=== PATIENT | female | born 1945 | race Caucasian/White ===

== ENCOUNTER 2016-05-23 17:39 | Emergency (ER) | payer MEDICARE, BC ==
[~2016-05-23] VITALS: Ht 152.4 cm; Wt 90.7 kg
[~2016-05-23 17:39] MED LIST: ACTOS30 M1 PO; AMARYL4 MG PO; ASPIRIN81 M1 PO; ATIVAN PO; ATIVAN2 MG PO; AUGMENTIN 875 M1 TAB PO; CALCIUM 600/VIT1 CAP PO; CEFUROXIME AXE250 MG PO; CIPROFLOXACIN500 MG PO; CLARITIN10 MG PO; COMPAZINE10 MG PO; DARVOCET N 1001 TAB PO; DIFLUCAN150 MG PO; DIFLUCAN200 MG PO; FLAGYL500 MG PO; GEODON20 MG PO; GLUCOPHAGE1000 MG PO; GLUCOPHAGE500 MG PO; KEFLEX500 MG PO; LEVAQUIN750 MG PO; LEVOFLOXACIN500 MG PO; LISINOPRIL HCTZ1 TA1 PO; LISINOPRIL5 MG PO; Lopressor25 MG PO; MOTRIN800 MG PO; MULTIPLE VITAMI1 TAB PO; NEURONTIN100 MG PO; NYSTATIN100000 U/G TP; OMEGA-3 FISH1200 M1 PO; PRESERVISION A1 EAC1 PO; PRESERVISION1 SGL PO; PRINIVIL10 MG PO; PYRIDIUM200 M1 PO; SIMVASTATIN40 MG PO; VICODIN 500 MG-1 TAB PO; WELLBUTRIN SR150 MG PO; WELLBUTRIN XL150 MG PO
[2016-05-23] MEDS ORDERED: LISINOPRIL-HYDR1 TA1 PO (17:58)
[2016-05-23] MEDS ORDERED: ATIVAN1 MG PO (17:59)
[2016-05-23 18:27] LABS: BASO # 0.1 10*3/uL (0.0-0.1); BASO % 0.5 % (0.0-1.0); EOS # 0.2 10*3/uL (0.0-0.4); EOS % 1.9 % (1.0-4.0); HEMATOCRIT 40.4 % (37.0-47.0); HEMOGLOBIN 12.8 g/dl (12.0-16.0); IG # 0.1 10*3/uL (0.0-0.1); LYMPH # 1.8 10*3/uL (1.3-4.4); LYMPH % 19.2 % (27.0-41.0); MEAN CORPUSCULAR HGB 29.8 pg (27.0-31.0); MEAN CORPUSCULAR HGB CONC 31.7 g/dl (33.0-37.0); MEAN PLATELET VOLUME 10.9 fl (9.6-12.3); MONO # 0.8 10*3/uL (0.1-1.0); MONO % 8.4 % (3.0-9.0); NEUT # 6.4 10*3/uL (2.3-7.9); NEUT % 69.1 % (47.0-73.0); PLATELET COUNT AUTOMATED 210 10*3/uL (130-400); RED CELL DISTRI WIDTH 14.3 % (0-14.5); WHITE BLOOD COUNT 9.3 10*3/uL (4.8-10.8)
[2016-05-23 18:38] LABS: PROTHROMBIN TIME 11.1 SECONDS (9.0-12.4)
[2016-05-23 18:43] LABS: ALBUMIN 3.3 gm/dl (3.1-4.5); ALKALINE PHOSPHATASE 76 U/L (45-117); BILIRUBIN, TOTAL 0.3 mg/dl (0.2-1.0); BUN 17 mg/dl (7-24); CARBON DIOXIDE 31 mmol/L (21-32); CHLORIDE 101 mmol/L (98-107); EST GLOM FILT AFRICAN AMERICAN 59 ml/min; GLUCOSE 151 mg/dL (65-99); POTASSIUM 3.9 mmol/L (3.5-5.1); SGOT/AST 20 IU/L (3-35); SGPT/ALT 24 U/L (12-78); SODIUM 141 mmol/L (136-145); TOTAL PROTEIN 6.9 gm/dL (6.4-8.2)
[2016-05-23 18:44] LABS: TROPONIN I < 0.015 ng/ml (<0.5)
[2016-05-23 19:40] VITALS: BP 162/71
== END 2016-05-23 20:00 | disposition short-term general hospital (02) ==
LOC: ED 17:39
PROVIDERS: Physician Assistant
DX: S06.5X0A Traumatic subdural hemorrhage without loss of consciousness, initial encounter (principal); M54.5 Low back pain; Z90.49 Acquired absence of other specified parts of digestive tract; Z98.890 Other specified postprocedural states; Z79.82 Long term (current) use of aspirin; Z88.1 Allergy status to other antibiotic agents; Z88.8 Allergy status to other drugs, medicaments and biological substances; E11.9 Type 2 diabetes mellitus without complications; I25.10 Atherosclerotic heart disease of native coronary artery without angina pectoris; W06.XXXA Fall from bed, initial encounter; Y93.89 Activity, other specified; Y92.009 Unspecified place in unspecified non-institutional (private) residence as the place of occurrence of the external cause; Y99.9 Unspecified external cause status

== ENCOUNTER → 2016-09-15 | Outpatient (CLI) | payer MEDICARE, BC ==
[~2016-09-15] MED LIST changes: +ATIVAN1 MG PO; +LISINOPRIL-HYDR1 TA1 PO
[2016-09-15 09:44] LABS: BUN 18 mg/dl (7-24); CARBON DIOXIDE 27 mmol/L (21-32); CHLORIDE 102 mmol/L (98-107); EST GLOM FILT AFRICAN AMERICAN > 60 ml/min; GLUCOSE 154 mg/dL (65-99); POTASSIUM 3.8 mmol/L (3.5-5.1); SODIUM 139 mmol/L (136-145)
[2016-09-15 09:49] LABS: CHOLESTEROL 152 mg/dL (<200); CPK 84 U/L (26-192); HDL CHOLESTEROL 72 mg/dl (40-60); LDL CHOLESTEROL 52 mg/dL (9-159); TRIGLYCERIDES 139 mg/dl (<150); VLDL CHOLESTEROL 28 mg/dL (6-40)
[2016-09-15 10:00] LABS: HEMOGLOBIN A1c 6.7 % (4.8-5.6)
[2016-09-16 09:07] LABS: MICRO ALBUMIN/CRE RATIO 86.1 (0.0-30.0)
== END | disposition home or self-care (01) ==
LOC: LAB 09:11
PROVIDERS: Family Medicine
DX: E78.00 Pure hypercholesterolemia, unspecified (principal); E11.9 Type 2 diabetes mellitus without complications

== ENCOUNTER → 2016-09-20 | Outpatient (CLI) | payer MEDICARE, BC | END | disposition home or self-care (01) | LOC: US 01:22 | DX: Z12.31 Encounter for screening mammogram for malignant neoplasm of breast (principal); E04.1 Nontoxic single thyroid nodule; E11.9 Type 2 diabetes mellitus without complications; E78.00 Pure hypercholesterolemia, unspecified ==

== ENCOUNTER 2017-01-29 02:15 | Emergency (ER) | payer MEDICARE, BC ==
[~2017-01-29] VITALS: Ht 154.9 cm; Wt 81.6 kg
[2017-01-29 02:28] VITALS: BP 151/80
[2017-01-29 02:36] LABS: BASO # 0.1 10*3/uL (0.0-0.1); BASO % 0.6 % (0.0-1.0); EOS # 0.3 10*3/uL (0.0-0.4); EOS % 3.1 % (1.0-4.0); HEMATOCRIT 39.9 % (37.0-47.0); HEMOGLOBIN 12.6 g/dl (12.0-16.0); LYMPH # 1.8 10*3/uL (1.3-4.4); LYMPH % 21.5 % (27.0-41.0); MEAN CELL VOLUME 88.9 fl (81.0-99.0); MEAN CORPUSCULAR HGB 28.1 pg (27.0-31.0); MEAN CORPUSCULAR HGB CONC 31.6 g/dl (33.0-37.0); MEAN PLATELET VOLUME 10.7 fl (9.6-12.3); MONO # 0.8 10*3/uL (0.1-1.0); MONO % 9.7 % (3.0-9.0); NEUT # 5.3 10*3/uL (2.3-7.9); PLATELET COUNT AUTOMATED 216 10*3/uL (130-400); RED BLOOD COUNT 4.49 10*6/uL (4.10-5.10); RED CELL DISTRI WIDTH 14.7 % (0-14.5); WHITE BLOOD COUNT 8.3 10*3/uL (4.8-10.8)
[2017-01-29 02:46] LABS: ACT PARTIAL THROMBO TIME 23.9 SECONDS (20.8-31.5)
[2017-01-29 02:54] LABS: ALBUMIN 3.4 gm/dl (3.1-4.5); ALKALINE PHOSPHATASE 104 U/L (45-117); BUN 22 mg/dl (7-24); CHLORIDE 100 mmol/L (98-107); CREATININE 0.74 mg/dL (0.55-1.02); POTASSIUM 4.1 mmol/L (3.5-5.1); SGOT/AST 17 IU/L (3-35); SGPT/ALT 18 U/L (12-78); SODIUM 137 mmol/L (136-145); TOTAL PROTEIN 6.9 gm/dL (6.4-8.2)
[2017-01-29 03:13] LABS: BILIRUBIN NEGATIVE (NEGATIVE); BLOOD NEGATIVE (NEGATIVE); CLARITY CLEAR (CLEAR); COLOR YELLOW (YELLOW); GLUCOSE NEGATIVE (NEGATIVE); KETONE NEGATIVE (NEGATIVE); LEUKO ESTERASE NEGATIVE (NEGATIVE); NITRITE NEGATIVE (NEGATIVE); SPECIFIC GRAVITY <= 1.005 (1.005-1.030); UROBILINOGEN 0.2 E.U./dl (0.2-1.0)
[2017-01-29 03:18] LABS: BACTERIA 2+
== END 2017-01-29 03:48 | disposition home or self-care (01) ==
LOC: ED 02:15
PROVIDERS: Emergency Medicine
DX: S70.01XA Contusion of right hip, initial encounter (principal); S80.211A Abrasion, right knee, initial encounter; M25.521 Pain in right elbow; I10 Essential (primary) hypertension; E11.9 Type 2 diabetes mellitus without complications; E78.5 Hyperlipidemia, unspecified; Z88.8 Allergy status to other drugs, medicaments and biological substances; Z79.82 Long term (current) use of aspirin; Z79.899 Other long term (current) drug therapy; W19.XXXA Unspecified fall, initial encounter; Y93.89 Activity, other specified; Y92.090 Kitchen in other non-institutional residence as the place of occurrence of the external cause; Y99.8 Other external cause status

== ENCOUNTER → 2017-02-02 | Outpatient (CLI) | payer MEDICARE, BC | END | disposition home or self-care (01) | LOC: LAB 15:55 | DX: A04.72 Enterocolitis due to Clostridium difficile, not specified as recurrent (principal) ==

== ENCOUNTER 2017-02-10 16:47 | Emergency (ER) | payer MEDICARE, BC ==
[~2017-02-10] VITALS: Ht 165.1 cm; Wt 72.6 kg
[2017-02-10 16:47] VITALS: BP 179/80
[2017-02-10 17:41] LABS: BILIRUBIN NEGATIVE (NEGATIVE); BLOOD NEGATIVE (NEGATIVE); CLARITY CLEAR (CLEAR); COLOR YELLOW (YELLOW); GLUCOSE NEGATIVE (NEGATIVE); KETONE NEGATIVE (NEGATIVE); LEUKO ESTERASE 1+ (NEGATIVE); NITRITE NEGATIVE (NEGATIVE); SPECIFIC GRAVITY <= 1.005 (1.005-1.030); UROBILINOGEN 0.2 E.U./dl (0.2-1.0)
[2017-02-10 17:49] LABS: BACTERIA 1+
[2017-02-10 18:00] LABS: BASO # 0.1 10*3/uL (0.0-0.1); BASO % 0.6 % (0.0-1.0); EOS # 0.2 10*3/uL (0.0-0.4); EOS % 2.1 % (1.0-4.0); HEMATOCRIT 39.8 % (37.0-47.0); HEMOGLOBIN 12.9 g/dl (12.0-16.0); LYMPH # 2.2 10*3/uL (1.3-4.4); LYMPH % 26.6 % (27.0-41.0); MEAN CELL VOLUME 88.2 fl (81.0-99.0); MEAN CORPUSCULAR HGB 28.6 pg (27.0-31.0); MEAN CORPUSCULAR HGB CONC 32.4 g/dl (33.0-37.0); MONO # 0.8 10*3/uL (0.1-1.0); MONO % 10.2 % (3.0-9.0); NEUT % 60.1 % (47.0-73.0); PLATELET COUNT AUTOMATED 259 10*3/uL (130-400); RED BLOOD COUNT 4.51 10*6/uL (4.10-5.10); RED CELL DISTRI WIDTH 14.4 % (0-14.5); WHITE BLOOD COUNT 8.2 10*3/uL (4.8-10.8)
[2017-02-10 18:15] LABS: ALBUMIN 3.3 gm/dl (3.1-4.5); BUN 21 mg/dl (7-24); CHLORIDE 99 mmol/L (98-107); CREATININE 0.74 mg/dL (0.55-1.02); LIPASE 402 U/L (73-393); MAGNESIUM 2.2 mg/dL (1.5-2.1); POTASSIUM 4.4 mmol/L (3.5-5.1); SGOT/AST 16 IU/L (3-35); SGPT/ALT 22 U/L (12-78); SODIUM 133 mmol/L (136-145); TOTAL PROTEIN 7.4 gm/dL (6.4-8.2)
[2017-02-10 18:16] LABS: ALKALINE PHOSPHATASE 114 U/L (45-117)
[2017-02-10 18:19] LABS: TROPONIN I < 0.015 ng/ml (<0.045)
== END 2017-02-10 18:54 | disposition home or self-care (01) ==
LOC: ED 16:47
PROVIDERS: Nurse Practitioner Family
DX: N30.00 Acute cystitis without hematuria (principal); J06.9 Acute upper respiratory infection, unspecified; B97.89 Other viral agents as the cause of diseases classified elsewhere; Z88.8 Allergy status to other drugs, medicaments and biological substances; Z79.82 Long term (current) use of aspirin; Z79.899 Other long term (current) drug therapy

== ENCOUNTER 2017-04-03 18:24 | Inpatient (IN) | payer MEDICARE, BC ==
[~2017-04-03] VITALS: Ht 152.4 cm; Wt 88.0 kg
--- NOTE | ~2017-04-03 | EKG ---
[place], [place] ELECTROCARDIOGRAM REPORT NAME: MIRTHA ROJAS UNIT #: [id number] ROOM: [facility] DOCTOR: GUERLINE CHAIREZ,EDISON BIRTHDATE: [birth year] DOS: 04/04/2017 TIME: 8:35 a.m. IMPRESSION: 1. Sinus rhythm. 2. Baseline artifacts. EDISON CUNHA MD CM:EKGRPT:ELECTROCARDIOGRAM REPORT [id number] EDISON CUNHA MD
--- NOTE | ~2017-04-03 | EKG ---
[place], [place] ELECTROCARDIOGRAM REPORT NAME: MIRTHA ROJAS UNIT #: [id number] ROOM: [facility] DOCTOR: GUERLINE CHAIREZ,EDISON BIRTHDATE: [birth year] DOS: 04/03/2017 TIME: 1959 hours. IMPRESSION: 1. Sinus rhythm. 2. Baseline artifacts. EDISON CUNHA MD CM:EKGRPT:ELECTROCARDIOGRAM REPORT [id number] EDISON CUNHA MD
[~2017-04-03 18:24] MED LIST changes: +KEFLEX500 M1 PO; +NAPROSYN500 MG PO; +SILVADENE,SSD C50 GM T
[2017-04-03 18:25] VITALS: BP 195/77
[2017-04-03 19:49] VITALS: BP 136/73
[2017-04-03 20:12] LABS: BASO % 0.3 % (0.0-1.0); EOS # 0.1 10*3/uL (0.0-0.4); HEMATOCRIT 36.9 % (37.0-47.0); HEMOGLOBIN 12.4 g/dl (12.0-16.0); LYMPH # 1.5 10*3/uL (1.3-4.4); MEAN CELL VOLUME 87.6 fl (81.0-99.0); MEAN CORPUSCULAR HGB 29.5 pg (27.0-31.0); MEAN CORPUSCULAR HGB CONC 33.6 g/dl (33.0-37.0); MONO # 0.8 10*3/uL (0.1-1.0); MONO % 5.6 % (3.0-9.0); NEUT % 81.7 % (47.0-73.0); PLATELET COUNT AUTOMATED 200 10*3/uL (130-400); RED BLOOD COUNT 4.21 10*6/uL (4.10-5.10); RED CELL DISTRI WIDTH 13.3 % (0-14.5); WHITE BLOOD COUNT 13.5 10*3/uL (4.8-10.8)
[2017-04-03 20:28] LABS: ALBUMIN 3.6 gm/dl (3.1-4.5); ALKALINE PHOSPHATASE 90 U/L (45-117); BUN 16 mg/dl (7-24); CHLORIDE 93 mmol/L (98-107); CREATININE 0.71 mg/dL (0.55-1.02); POTASSIUM 4.1 mmol/L (3.5-5.1); SGOT/AST 15 IU/L (3-35); SGPT/ALT 16 U/L (12-78); SODIUM 130 mmol/L (136-145)
[2017-04-03 20:30] LABS: TROPONIN I < 0.015 ng/ml (<0.045)
[2017-04-03 22:00] VITALS: BP 152/62
[2017-04-03 22:45] VITALS: BP 131/61
[2017-04-04] VITALS: BP 177/74
[2017-04-04 03:48] VITALS: BP 168/72
[2017-04-04 07:11] LABS: ALBUMIN 3.2 gm/dl (3.1-4.5); ALKALINE PHOSPHATASE 76 U/L (45-117); BUN 13 mg/dl (7-24); CHLORIDE 100 mmol/L (98-107); CHOLESTEROL 136 mg/dL (<200); CREATININE 0.81 mg/dL (0.55-1.02); FREE T4 1.04 ng/dl (0.76-1.46); HDL CHOLESTEROL 65 mg/dl (40-60); LDL CHOLESTEROL 54 mg/dL (9-159); PHOSPHOROUS 4.1 mg/dL (2.5-4.9); POTASSIUM 4.3 mmol/L (3.5-5.1); SGOT/AST 14 IU/L (3-35); SGPT/ALT 14 U/L (12-78); SODIUM 134 mmol/L (136-145); TOTAL PROTEIN 6.4 gm/dL (6.4-8.2); TRIGLYCERIDES 85 mg/dl (<150); VLDL CHOLESTEROL 17 mg/dL (6-40)
[2017-04-04 07:14] LABS: BASO % 0.5 % (0.0-1.0); EOS # 0.2 10*3/uL (0.0-0.4); EOS % 2.6 % (1.0-4.0); HEMATOCRIT 36.2 % (37.0-47.0); HEMOGLOBIN 11.8 g/dl (12.0-16.0); LYMPH # 1.6 10*3/uL (1.3-4.4); LYMPH % 18.6 % (27.0-41.0); MEAN CELL VOLUME 91.6 fl (81.0-99.0); MEAN CORPUSCULAR HGB 29.9 pg (27.0-31.0); MEAN CORPUSCULAR HGB CONC 32.6 g/dl (33.0-37.0); MONO # 0.7 10*3/uL (0.1-1.0); MONO % 8.2 % (3.0-9.0); NEUT # 5.8 10*3/uL (2.3-7.9); NEUT % 69.7 % (47.0-73.0); PLATELET COUNT AUTOMATED 199 10*3/uL (130-400); RED BLOOD COUNT 3.95 10*6/uL (4.10-5.10); RED CELL DISTRI WIDTH 13.7 % (0-14.5); WHITE BLOOD COUNT 8.3 10*3/uL (4.8-10.8)
[2017-04-04 07:34] LABS: VITAMIN D, 25-HYDROXY 21.4 ng/mL (30-100)
[2017-04-04 08:00] VITALS: BP 154/56
[2017-04-04 12:00] VITALS: BP 144/62
[2017-04-04 16:00] VITALS: BP 123/60
[2017-04-04] MEDS ORDERED: ZESTRIL10 MG PO (16:31)
[2017-04-04] MEDS ORDERED: ATIVAN1 MG PO (16:32)
[2017-04-04] MEDS ORDERED: PIOGLITAZONE HC15 MG PO (16:33)
[2017-04-04] MEDS ORDERED: METOPROLOL TART50 M1 PO (16:33)
[2017-04-04 20:00] VITALS: BP 136/48
[2017-04-05] VITALS: BP 130/72
[2017-04-05 07:16] LABS: BASO % 0.5 % (0.0-1.0); EOS # 0.4 10*3/uL (0.0-0.4); EOS % 5.3 % (1.0-4.0); HEMATOCRIT 35.9 % (37.0-47.0); HEMOGLOBIN 11.5 g/dl (12.0-16.0); LYMPH # 1.4 10*3/uL (1.3-4.4); MEAN CORPUSCULAR HGB 29.8 pg (27.0-31.0); MEAN PLATELET VOLUME 11.1 fl (9.6-12.3); MONO # 0.7 10*3/uL (0.1-1.0); NEUT % 65.8 % (47.0-73.0); PLATELET COUNT AUTOMATED 174 10*3/uL (130-400); RED BLOOD COUNT 3.86 10*6/uL (4.10-5.10); WHITE BLOOD COUNT 7.5 10*3/uL (4.8-10.8)
[2017-04-05 07:35] LABS: BUN 11 mg/dl (7-24); CHLORIDE 106 mmol/L (98-107); CREATININE 0.72 mg/dL (0.55-1.02); POTASSIUM 4.1 mmol/L (3.5-5.1); SODIUM 140 mmol/L (136-145)
[2017-04-05 08:00] VITALS: BP 140/90
[2017-04-05 12:00] VITALS: BP 160/70
[2017-04-05 16:00] VITALS: BP 141/59
[2017-04-05 20:00] VITALS: BP 154/63
[2017-04-06] VITALS (9 sets, daily range): BP systolic 122–180; BP diastolic 67–99
[2017-04-07] VITALS: BP 158/74
[2017-04-07 03:58] VITALS: BP 152/70
[2017-04-07 08:00] VITALS: BP 158/84
[2017-04-07 09:01] LABS: BASO % 0.5 % (0.0-1.0); EOS # 0.6 10*3/uL (0.0-0.4); EOS % 8.8 % (1.0-4.0); HEMOGLOBIN 12.1 g/dl (12.0-16.0); LYMPH # 1.5 10*3/uL (1.3-4.4); LYMPH % 23.5 % (27.0-41.0); MEAN CELL VOLUME 91.8 fl (81.0-99.0); MEAN CORPUSCULAR HGB 29.2 pg (27.0-31.0); MEAN CORPUSCULAR HGB CONC 31.8 g/dl (33.0-37.0); MEAN PLATELET VOLUME 10.8 fl (9.6-12.3); MONO # 0.6 10*3/uL (0.1-1.0); MONO % 9.3 % (3.0-9.0); NEUT # 3.6 10*3/uL (2.3-7.9); NEUT % 57.6 % (47.0-73.0); PLATELET COUNT AUTOMATED 196 10*3/uL (130-400); RED BLOOD COUNT 4.14 10*6/uL (4.10-5.10); RED CELL DISTRI WIDTH 13.5 % (0-14.5); WHITE BLOOD COUNT 6.3 10*3/uL (4.8-10.8)
[2017-04-07 09:08] LABS: BUN 5 mg/dl (7-24); CHLORIDE 104 mmol/L (98-107); CREATININE 0.62 mg/dL (0.55-1.02); POTASSIUM 3.7 mmol/L (3.5-5.1); SODIUM 141 mmol/L (136-145)
[2017-04-07 12:00] VITALS: BP 162/54
[2017-04-07] MEDS ORDERED: VITAMIN D31000 UNIT PO (14:41)
[2017-04-07] MEDS ORDERED: SEPTDS PO (14:41)
[2017-04-07] MEDS ORDERED: NORCO 5-325 TA1 EACH PO (14:41)
== END 2017-04-07 15:50 | disposition other institution (70) | DRG 854 ==
LOC: ED 18:24 → 4E 21:31 → EDHOLD 21:31 → 4E 21:41
PROVIDERS: Emergency Medicine Emergency Medical Services; Family Medicine; Student in an Organized Health Care Education/Training Program
PROC: 0HBUXZZ (ICD-10-PCS; principal; 2017-04-06)
DX: A41.9 Sepsis, unspecified organism (principal); E87.1 Hypo-osmolality and hyponatremia; E11.65 Type 2 diabetes mellitus with hyperglycemia; E66.01 Morbid (severe) obesity due to excess calories; E87.8 Other disorders of electrolyte and fluid balance, not elsewhere classified; B37.2 Candidiasis of skin and nail; L03.313 Cellulitis of chest wall; F17.200 Nicotine dependence, unspecified, uncomplicated; I10 Essential (primary) hypertension; E78.5 Hyperlipidemia, unspecified; D64.9 Anemia, unspecified; Z88.8 Allergy status to other drugs, medicaments and biological substances; Z91.81 History of falling; Z87.440 Personal history of urinary (tract) infections; Z90.49 Acquired absence of other specified parts of digestive tract; Z79.2 Long term (current) use of antibiotics; Z79.84 Long term (current) use of oral hypoglycemic drugs; Z79.899 Other long term (current) drug therapy; T21.21XD Burn of second degree of chest wall, subsequent encounter; Z78.9 Other specified health status; Z82.49 Family history of ischemic heart disease and other diseases of the circulatory system; Z68.29 Body mass index [BMI] 29.0-29.9, adult

== ENCOUNTER 2017-07-12 12:03 | Inpatient (IN) | payer MEDICARE, BC ==
[~2017-07-12] VITALS: Ht 152 cm; Wt 91.0 kg
[~2017-07-12 12:03] MED LIST changes: +METOPROLOL TART50 M1 PO; +NORCO 5-325 TA1 EACH PO; +PIOGLITAZONE HC15 MG PO; +SEPTDS PO; +VITAMIN D31000 UNIT PO; +ZESTRIL10 MG PO
[2017-07-12 12:16] VITALS: BP 145/69
[2017-07-12 12:33] LABS: BASO % 0.4 % (0.0-1.0); EOS # 0.1 10*3/uL (0.0-0.4); EOS % 1.6 % (1.0-4.0); HEMATOCRIT 39.9 % (37.0-47.0); HEMOGLOBIN 12.5 g/dl (12.0-16.0); LYMPH # 1.6 10*3/uL (1.3-4.4); LYMPH % 21.6 % (27.0-41.0); MEAN CELL VOLUME 90.1 fl (81.0-99.0); MEAN CORPUSCULAR HGB 28.2 pg (27.0-31.0); MEAN CORPUSCULAR HGB CONC 31.3 g/dl (33.0-37.0); MONO # 0.7 10*3/uL (0.1-1.0); MONO % 8.9 % (3.0-9.0); NEUT # 4.9 10*3/uL (2.3-7.9); PLATELET COUNT AUTOMATED 225 10*3/uL (130-400); RED BLOOD COUNT 4.43 10*6/uL (4.10-5.10); RED CELL DISTRI WIDTH 13.4 % (0-14.5); WHITE BLOOD COUNT 7.3 10*3/uL (4.8-10.8)
[2017-07-12 12:41] LABS: ACT PARTIAL THROMBO TIME 24.3 SECONDS (20.8-31.5)
[2017-07-12 12:51] LABS: ALBUMIN 3.4 gm/dl (3.1-4.5); ALKALINE PHOSPHATASE 80 U/L (45-117); BUN 18 mg/dl (7-24); CHLORIDE 100 mmol/L (98-107); CREATININE 0.71 mg/dL (0.55-1.02); POTASSIUM 4.2 mmol/L (3.5-5.1); SGOT/AST 16 IU/L (3-35); SGPT/ALT 17 U/L (12-78); SODIUM 136 mmol/L (136-145); TOTAL PROTEIN 7.2 gm/dL (6.4-8.2)
[2017-07-12 12:56] LABS: TROPONIN I < 0.015 ng/ml (<0.045)
[2017-07-12 14:25] VITALS: BP 160/74
[2017-07-12 21:00] VITALS: BP 153/74
[2017-07-13] VITALS: BP 142/50
[2017-07-13 06:31] LABS: BASO % 0.5 % (0.0-1.0); EOS # 0.2 10*3/uL (0.0-0.4); EOS % 3.8 % (1.0-4.0); HEMATOCRIT 39.8 % (37.0-47.0); HEMOGLOBIN 12.3 g/dl (12.0-16.0); LYMPH # 2.1 10*3/uL (1.3-4.4); LYMPH % 33.4 % (27.0-41.0); MEAN CORPUSCULAR HGB CONC 30.9 g/dl (33.0-37.0); MEAN PLATELET VOLUME 10.9 fl (9.6-12.3); MONO # 0.8 10*3/uL (0.1-1.0); MONO % 12.9 % (3.0-9.0); NEUT # 3.1 10*3/uL (2.3-7.9); NEUT % 49.1 % (47.0-73.0); PLATELET COUNT AUTOMATED 221 10*3/uL (130-400); RED BLOOD COUNT 4.24 10*6/uL (4.10-5.10); RED CELL DISTRI WIDTH 13.9 % (0-14.5); WHITE BLOOD COUNT 6.3 10*3/uL (4.8-10.8)
[2017-07-13 06:32] LABS: MEAN CELL VOLUME 93.9 fl (81.0-99.0)
[2017-07-13 06:38] LABS: ALBUMIN 3.2 gm/dl (3.1-4.5); ALKALINE PHOSPHATASE 71 U/L (45-117); BUN 20 mg/dl (7-24); CHLORIDE 99 mmol/L (98-107); CREATININE 0.94 mg/dL (0.55-1.02); POTASSIUM 4.4 mmol/L (3.5-5.1); SGOT/AST 17 IU/L (3-35); SGPT/ALT 18 U/L (12-78); SODIUM 137 mmol/L (136-145); TOTAL PROTEIN 7.1 gm/dL (6.4-8.2)
[2017-07-13 08:00] VITALS: BP 133/47
[2017-07-13 12:00] VITALS: BP 130/95
[2017-07-13 16:00] VITALS: BP 131/66
== END 2017-07-13 18:46 | disposition home or self-care (01) | DRG 205 ==
LOC: ED 12:03 → 5E 13:12 → EDHOLD 13:12 → 5E 13:33
PROVIDERS: Emergency Medicine; Family Medicine
PROC: 4A02XM4 Measurement of Cardiac Total Activity, External Approach (ICD-10-PCS; principal; 2017-07-13)
PROC: 3E073KZ Introduction of Other Diagnostic Substance into Coronary Artery, Percutaneous Approach (ICD-10-PCS; principal; 2017-07-13)
DX: M94.0 Chondrocostal junction syndrome [Tietze] (principal); J18.9 Pneumonia, unspecified organism; E11.65 Type 2 diabetes mellitus with hyperglycemia; E44.1 Mild protein-calorie malnutrition; E83.41 Hypermagnesemia; I25.119 Atherosclerotic heart disease of native coronary artery with unspecified angina pectoris; I25.2 Old myocardial infarction; Z68.39 Body mass index [BMI] 39.0-39.9, adult; E78.5 Hyperlipidemia, unspecified; R07.89 Other chest pain; D72.810 Lymphocytopenia; E66.9 Obesity, unspecified; I10 Essential (primary) hypertension; Z79.899 Other long term (current) drug therapy; Z79.82 Long term (current) use of aspirin; Z90.49 Acquired absence of other specified parts of digestive tract; Z82.49 Family history of ischemic heart disease and other diseases of the circulatory system; Z87.891 Personal history of nicotine dependence; Z90.710 Acquired absence of both cervix and uterus; K21.9 Gastro-esophageal reflux disease without esophagitis; F41.9 Anxiety disorder, unspecified

== ENCOUNTER → 2017-08-01 | Outpatient (CLI) | payer MEDICARE, BC | END | disposition home or self-care (01) | LOC: US 00:50 | DX: E04.2 Nontoxic multinodular goiter (principal) ==

== ENCOUNTER 2017-10-14 14:22 | Inpatient (IN) | payer MEDICARE, BC ==
[~2017-10-14] VITALS: Ht 152.4 cm; Wt 89.0 kg
[2017-10-14 14:25] VITALS: BP 185/66
[2017-10-14 15:48] LABS: BASO % 0.4 % (0.0-1.0); EOS # 0.2 10*3/uL (0.0-0.4); HEMATOCRIT 41.9 % (37.0-47.0); HEMOGLOBIN 13.4 g/dl (12.0-16.0); LYMPH # 2.5 10*3/uL (1.3-4.4); LYMPH % 25.8 % (27.0-41.0); MEAN CELL VOLUME 90.1 fl (81.0-99.0); MEAN CORPUSCULAR HGB 28.8 pg (27.0-31.0); MEAN PLATELET VOLUME 10.7 fl (9.6-12.3); MONO # 0.9 10*3/uL (0.1-1.0); MONO % 9.8 % (3.0-9.0); NEUT % 61.8 % (47.0-73.0); PLATELET COUNT AUTOMATED 232 10*3/uL (130-400); RED BLOOD COUNT 4.65 10*6/uL (4.10-5.10); RED CELL DISTRI WIDTH 14.1 % (0-14.5); WHITE BLOOD COUNT 9.6 10*3/uL (4.8-10.8)
[2017-10-14 15:57] LABS: ACT PARTIAL THROMBO TIME 23.6 SECONDS (20.8-31.5)
[2017-10-14 16:03] LABS: ALBUMIN 3.9 gm/dl (3.1-4.5); ALKALINE PHOSPHATASE 88 U/L (45-117); BUN 20 mg/dl (7-24); CHLORIDE 102 mmol/L (98-107); POTASSIUM 4.6 mmol/L (3.5-5.1); SGOT/AST 13 IU/L (3-35); SGPT/ALT 20 U/L (12-78); SODIUM 138 mmol/L (136-145); TOTAL PROTEIN 7.5 gm/dL (6.4-8.2)
[2017-10-14] MEDS ORDERED: PRESERVISION L1 EACH PO (17:13)
[2017-10-14] MEDS ORDERED: GEODON20 MG PO (17:13)
[2017-10-14 18:00] VITALS: BP 155/62
[2017-10-14 20:00] VITALS: BP 151/54
[2017-10-15] VITALS: BP 126/57
[2017-10-15 06:13] LABS: BASO % 0.6 % (0.0-1.0); EOS # 0.3 10*3/uL (0.0-0.4); EOS % 4.1 % (1.0-4.0); HEMATOCRIT 39.3 % (37.0-47.0); MEAN CELL VOLUME 93.1 fl (81.0-99.0); MEAN CORPUSCULAR HGB 28.4 pg (27.0-31.0); MEAN CORPUSCULAR HGB CONC 30.5 g/dl (33.0-37.0); MEAN PLATELET VOLUME 11.2 fl (9.6-12.3); MONO # 0.7 10*3/uL (0.1-1.0); MONO % 10.8 % (3.0-9.0); NEUT # 3.6 10*3/uL (2.3-7.9); NEUT % 54.2 % (47.0-73.0); PLATELET COUNT AUTOMATED 198 10*3/uL (130-400); RED BLOOD COUNT 4.22 10*6/uL (4.10-5.10); RED CELL DISTRI WIDTH 14.5 % (0-14.5); WHITE BLOOD COUNT 6.6 10*3/uL (4.8-10.8)
[2017-10-15 06:30] LABS: ALBUMIN 3.2 gm/dl (3.1-4.5); ALKALINE PHOSPHATASE 71 U/L (45-117); BUN 19 mg/dl (7-24); CHLORIDE 102 mmol/L (98-107); CHOLESTEROL 139 mg/dL (<200); CREATININE 0.78 mg/dL (0.55-1.02); FREE T4 1.07 ng/dl (0.76-1.46); HDL CHOLESTEROL 59 mg/dl (40-60); LDL CHOLESTEROL 56 mg/dL (9-159); POTASSIUM 3.8 mmol/L (3.5-5.1); SGOT/AST 12 IU/L (3-35); SGPT/ALT 17 U/L (12-78); SODIUM 139 mmol/L (136-145); TOTAL PROTEIN 6.6 gm/dL (6.4-8.2); TRIGLYCERIDES 118 mg/dl (<150); VLDL CHOLESTEROL 24 mg/dL (6-40)
[2017-10-15 07:13] LABS: VITAMIN D, 25-HYDROXY 28.1 ng/mL (30-100)
[2017-10-15 08:00] VITALS: BP 134/61
[2017-10-15 12:00] VITALS: BP 112/46
[2017-10-15 16:00] VITALS: BP 134/72
[2017-10-15 20:00] VITALS: BP 153/61
[2017-10-15 22:23] LABS: BILIRUBIN NEGATIVE (NEGATIVE); BLOOD NEGATIVE (NEGATIVE); CLARITY SL CLOUDY (CLEAR); COLOR YELLOW (YELLOW); GLUCOSE NEGATIVE (NEGATIVE); KETONE NEGATIVE (NEGATIVE); LEUKO ESTERASE NEGATIVE (NEGATIVE); NITRITE NEGATIVE (NEGATIVE); PH 5.5 (5.0-9.0); SPECIFIC GRAVITY >= 1.030 (1.005-1.030); UROBILINOGEN 0.2 E.U./dl (0.2-1.0)
[2017-10-15 22:33] LABS: BACTERIA 2+
[2017-10-16] VITALS: BP 121/75
[2017-10-16 08:00] VITALS: BP 157/49
[2017-10-16 12:00] VITALS: BP 134/76
[2017-10-16 16:00] VITALS: BP 130/51
[2017-10-16 20:00] VITALS: BP 130/62
[2017-10-17] VITALS: BP 122/49
[2017-10-17 08:00] VITALS: BP 149/50
[2017-10-17 12:00] VITALS: BP 128/87
[2017-10-17] MEDS ORDERED: B12,B-12,B 12500 MC1 PO (13:31)
[2017-10-17] MEDS ORDERED: LORAZEPAM1 MG PO (13:31)
[2017-10-17] MEDS ORDERED: VITAMIN D-32000 UNIT PO (13:31)
[2017-10-17] MEDS ORDERED: Humalog SQ (13:31)
== END 2017-10-17 14:51 | disposition other institution (70) | DRG 563 ==
LOC: ED 14:22 → EDHOLD 16:24 → 4E 16:24
PROVIDERS: Internal Medicine; Physician Assistant; Student in an Organized Health Care Education/Training Program
DX: S82.035A Nondisplaced transverse fracture of left patella, initial encounter for closed fracture (principal); E11.65 Type 2 diabetes mellitus with hyperglycemia; Z68.1 Body mass index [BMI] 19.9 or less, adult; D72.810 Lymphocytopenia; E78.5 Hyperlipidemia, unspecified; E66.09 Other obesity due to excess calories; I25.10 Atherosclerotic heart disease of native coronary artery without angina pectoris; M25.531 Pain in right wrist; I10 Essential (primary) hypertension; W01.0XXA Fall on same level from slipping, tripping and stumbling without subsequent striking against object, initial encounter; Z90.49 Acquired absence of other specified parts of digestive tract; Z90.710 Acquired absence of both cervix and uterus; Z87.891 Personal history of nicotine dependence; Z82.49 Family history of ischemic heart disease and other diseases of the circulatory system; Z79.899 Other long term (current) drug therapy; Z79.82 Long term (current) use of aspirin; Z84.89 Family history of other specified conditions; Y93.89 Activity, other specified; Y92.89 Other specified places as the place of occurrence of the external cause; Y99.8 Other external cause status

== ENCOUNTER → 2017-11-03 | Outpatient (CLI) | payer MEDICARE, BC ==
[~2017-11-03] MED LIST changes: +B12,B-12,B 12500 MC1 PO; +HUMALOG100 UNIT/2 SQ; +Humalog SQ; +IMODIUM A-D2 M2 PO; +LORAZEPAM1 MG PO; +NYSTOP60 GM T; +OXYGEN NAS; -PIOGLITAZONE HC15 MG PO; +PIOGLITAZONE HC30 MG PO; +PREDNISONE10 MG PO; +PRESERVISION L1 EACH PO; +VITAMIN D-32000 UNIT PO; +Zestril,Prinivi40 MG PO
== END | disposition home or self-care (01) ==
LOC: ORTHO 02:19
DX: Z47.89 Encounter for other orthopedic aftercare (principal); S82.002D Unspecified fracture of left patella, subsequent encounter for closed fracture with routine healing; X58.XXXD Exposure to other specified factors, subsequent encounter

== ENCOUNTER → 2017-12-01 | Outpatient (CLI) | payer MEDICARE, BC ==
[~2017-12-01] MED LIST changes: -NYSTOP60 GM T; -PREDNISONE10 MG PO; -Zestril,Prinivi40 MG PO
== END | disposition home or self-care (01) ==
LOC: ORTHO 01:38
DX: S82.002D Unspecified fracture of left patella, subsequent encounter for closed fracture with routine healing (principal); X58.XXXD Exposure to other specified factors, subsequent encounter

== ENCOUNTER → 2018-01-03 | Outpatient (CLI) | payer MEDICARE, BC ==
[~2018-01-03] MED LIST changes: +MACROBID100 M1 PO; +NYSTOP60 GM T; +PREDNISONE10 MG PO; +Zestril,Prinivi40 MG PO
== END | disposition home or self-care (01) ==
LOC: ORTHO 01:49
DX: Z47.89 Encounter for other orthopedic aftercare (principal); S82.0 Fracture of patella; M17.12 Unilateral primary osteoarthritis, left knee; X58.XXXD Exposure to other specified factors, subsequent encounter

== ENCOUNTER 2018-01-14 13:33 | Emergency (ER) | payer MEDICARE, BC ==
[~2018-01-14] VITALS: Wt 88.9 kg
[2018-01-14] VITALS (9 sets, daily range): BP systolic 120–171; BP diastolic 52–81
--- NOTE | ~2018-01-14 | EKG ---
[place], [place] ELECTROCARDIOGRAM REPORT NAME: MIRTHA ROJAS UNIT #: [id number] ROOM: DOCTOR: EPIPHANY DRAFT REPORT BIRTHDATE: [birth year] [facility] Test Date: 2018-01-14 Test Time: 13:59:52 Pat Name: MIRTHA ROJAS Department: ER Room: [facility] Gender: F Director Of Head Start: EKG.NV : 1945 Requested By: AMERICA JAIN Order Number: [id number] Reading MD: Paxton Cardoza MD Measurements Intervals [place] Rate: 96 P: 61 WY: 150 QRS: -24 QRSD: 81 T: 55 QT: 354 QTc: 448 Interpretive Statements Sinus rhythm Probable left atrial enlargement Probable left ventricular hypertrophy Anterior Q waves, possibly due to LVH Compared to ECG 12/13/2017 12:02:46 Q waves now present Electronically Signed On 01-15-2018 8:43:27 PDT by Paxton Cardoza MD CM:EKGRPT:ELECTROCARDIOGRAM REPORT [id number] AMERICA JAIN MD EPIPHANY DRAFT REPORT AMERICA JAIN MD
[~2018-01-14 13:33] MED LIST changes: -MACROBID100 M1 PO
[2018-01-14 14:41] LABS: BASO % 0.4 % (0.0-1.0); EOS # 0.2 10*3/uL (0.0-0.4); EOS % 2.2 % (1.0-4.0); HEMATOCRIT 38.8 % (37.0-47.0); HEMOGLOBIN 12.1 g/dl (12.0-16.0); LYMPH # 1.4 10*3/uL (1.3-4.4); LYMPH % 19.8 % (27.0-41.0); MEAN CELL VOLUME 91.5 fl (81.0-99.0); MEAN CORPUSCULAR HGB 28.5 pg (27.0-31.0); MEAN CORPUSCULAR HGB CONC 31.2 g/dl (33.0-37.0); MEAN PLATELET VOLUME 10.8 fl (9.6-12.3); MONO # 0.7 10*3/uL (0.1-1.0); MONO % 10.6 % (3.0-9.0); NEUT # 4.6 10*3/uL (2.3-7.9); NEUT % 65.7 % (47.0-73.0); PLATELET COUNT AUTOMATED 288 10*3/uL (130-400); RED BLOOD COUNT 4.24 10*6/uL (4.10-5.10)
[2018-01-14 14:51] LABS: ACT PARTIAL THROMBO TIME 22.7 SECONDS (20.8-31.5)
[2018-01-14 14:54] LABS: BILIRUBIN NEGATIVE (NEGATIVE); BLOOD NEGATIVE (NEGATIVE); CLARITY CLEAR (CLEAR); COLOR YELLOW (YELLOW); GLUCOSE 2+ (NEGATIVE); KETONE NEGATIVE (NEGATIVE); LEUKO ESTERASE NEGATIVE (NEGATIVE); NITRITE NEGATIVE (NEGATIVE); SPECIFIC GRAVITY <= 1.005 (1.005-1.030); UROBILINOGEN 0.2 E.U./dl (0.2-1.0)
[2018-01-14 15:01] LABS: ALBUMIN 2.8 gm/dl (3.1-4.5); BUN 8 mg/dl (7-24); CHLORIDE 98 mmol/L (98-107); CREATININE 0.76 mg/dL (0.55-1.02); POTASSIUM 4.1 mmol/L (3.5-5.1); SGOT/AST 11 IU/L (3-35); SGPT/ALT 16 U/L (12-78); SODIUM 136 mmol/L (136-145)
[2018-01-14 15:04] LABS: BACTERIA TRACE; EPITHELIAL CELLS 25-30; RBC 0-2 rbc/hpf (0-2)
[2018-01-14 15:04] LABS: ALKALINE PHOSPHATASE 78 U/L (45-117)
[2018-01-14 15:10] LABS: THYROID STIM HORMONE (HS) 0.939 uIU/ml (0.358-4.75)
[2018-01-14 15:14] LABS: TROPONIN I < 0.015 ng/ml (<0.045)
== END 2018-01-14 20:45 | disposition home or self-care (01) ==
LOC: ED 13:33 → EDHOLD 16:19 → ED 20:45
PROVIDERS: Emergency Medicine
DX: R09.02 Hypoxemia (principal); R06.02 Shortness of breath; R74.0 Nonspecific elevation of levels of transaminase and lactic acid dehydrogenase [LDH]; R07.9 Chest pain, unspecified; R19.7 Diarrhea, unspecified; R53.1 Weakness; R11.0 Nausea; R10.9 Unspecified abdominal pain; R23.0 Cyanosis; J44.9 Chronic obstructive pulmonary disease, unspecified; I25.10 Atherosclerotic heart disease of native coronary artery without angina pectoris; E11.9 Type 2 diabetes mellitus without complications; I10 Essential (primary) hypertension; Z79.899 Other long term (current) drug therapy; Z79.82 Long term (current) use of aspirin; Z79.4 Long term (current) use of insulin; E78.5 Hyperlipidemia, unspecified; E66.9 Obesity, unspecified; Z87.891 Personal history of nicotine dependence

== ENCOUNTER 2018-02-07 21:29 | Emergency (ER) | payer MEDICARE, BC ==
[~2018-02-07] VITALS: Ht 160 cm; Wt 102.1 kg
[2018-02-07 22:05] LABS: BILIRUBIN NEGATIVE (NEGATIVE); BLOOD 1+ (NEGATIVE); CLARITY SL CLOUDY (CLEAR); COLOR YELLOW (YELLOW); GLUCOSE TRACE (NEGATIVE); KETONE NEGATIVE (NEGATIVE); LEUKO ESTERASE 2+ (NEGATIVE); NITRITE POSITIVE (NEGATIVE); PH 8.5 (5.0-9.0); UROBILINOGEN 0.2 E.U./dl (0.2-1.0)
[2018-02-07 22:15] LABS: BACTERIA 3+; WBC 31-40 wbc/hpf (0-5)
[2018-02-07 22:17] LABS: EPITHELIAL CELLS 15-20
[2018-02-07 23:46] VITALS: BP 149/60
[2018-02-07] MEDS ORDERED: MACROBID100 M1 PO (23:59)
== END 2018-02-08 00:31 | disposition other institution (70) ==
LOC: ED 21:29
PROVIDERS: Emergency Medicine
DX: S09.90XA Unspecified injury of head, initial encounter (principal); S86.912A Strain of unspecified muscle(s) and tendon(s) at lower leg level, left leg, initial encounter; S46.912A Strain of unspecified muscle, fascia and tendon at shoulder and upper arm level, left arm, initial encounter; N39.0 Urinary tract infection, site not specified; I25.10 Atherosclerotic heart disease of native coronary artery without angina pectoris; J44.9 Chronic obstructive pulmonary disease, unspecified; E11.9 Type 2 diabetes mellitus without complications; I10 Essential (primary) hypertension; E78.5 Hyperlipidemia, unspecified; E66.9 Obesity, unspecified; Z79.84 Long term (current) use of oral hypoglycemic drugs; Z87.891 Personal history of nicotine dependence; Z90.710 Acquired absence of both cervix and uterus; Z90.49 Acquired absence of other specified parts of digestive tract; Z79.82 Long term (current) use of aspirin; Z79.899 Other long term (current) drug therapy

== ENCOUNTER → 2018-02-14 | Outpatient (CLI) | payer MEDICARE, BC ==
[~2018-02-14] MED LIST changes: +MACROBID100 M1 PO
== END | disposition home or self-care (01) ==
LOC: ORTHO 04:16
DX: M17.12 Unilateral primary osteoarthritis, left knee (principal); M25.552 Pain in left hip; Z91.81 History of falling

== ENCOUNTER 2018-02-15 11:27 | Emergency (ER) | payer MEDICARE, BC ==
[~2018-02-15] VITALS: Wt 77.1 kg
--- NOTE | ~2018-02-15 | EKG ---
[place], [place] ELECTROCARDIOGRAM REPORT NAME: MIRTHA ROJAS UNIT #: [id number] ROOM: DOCTOR: ANIBAL DRAFT REPORT BIRTHDATE: [birth year] [facility] Test Date: 2018-02-15 Test Time: 11:58:17 Pat Name: MIRTHA ROJAS Department: Room: Gender: F Chief Relay Tester: Niesha Osorio : 1945 Requested By: CARMYN WU Order Number: [id number] Reading MD: Abran Santos MD Measurements Intervals [place] Rate: 93 P: 62 CT: 170 QRS: -24 QRSD: 81 T: 56 QT: 346 QTc: 431 Interpretive Statements Sinus rhythm Borderline left axis deviation Consider anterior infarct Electronically Signed On 02-18-2018 14:17:29 PDT by Abran Santos MD CM:EKGRPT:ELECTROCARDIOGRAM REPORT [id number] CAMRYN SHAFFER DRAFT REPORT CAMRYN WU DO
[2018-02-15 12:01] LABS: BASO % 0.5 % (0.0-1.0); EOS # 0.2 10*3/uL (0.0-0.4); HEMATOCRIT 34.7 % (37.0-47.0); HEMOGLOBIN 11.2 g/dl (12.0-16.0); LYMPH # 1.6 10*3/uL (1.3-4.4); LYMPH % 24.4 % (27.0-41.0); MEAN CELL VOLUME 89.9 fl (81.0-99.0); MEAN CORPUSCULAR HGB CONC 32.3 g/dl (33.0-37.0); MEAN PLATELET VOLUME 10.3 fl (9.6-12.3); MONO # 0.6 10*3/uL (0.1-1.0); MONO % 8.5 % (3.0-9.0); NEUT # 4.2 10*3/uL (2.3-7.9); NEUT % 63.3 % (47.0-73.0); PLATELET COUNT AUTOMATED 251 10*3/uL (130-400); RED BLOOD COUNT 3.86 10*6/uL (4.10-5.10); RED CELL DISTRI WIDTH 14.6 % (0-14.5); WHITE BLOOD COUNT 6.6 10*3/uL (4.8-10.8)
[2018-02-15 12:10] LABS: ACT PARTIAL THROMBO TIME 23.5 SECONDS (20.8-31.5)
[2018-02-15 12:18] LABS: ALKALINE PHOSPHATASE 77 U/L (45-117); BUN 12 mg/dl (7-24); CHLORIDE 97 mmol/L (98-107); CREATININE 0.84 mg/dL (0.55-1.02); LIPASE 367 U/L (73-393); SGOT/AST 21 IU/L (3-35); SGPT/ALT 20 U/L (12-78); SODIUM 134 mmol/L (136-145); TOTAL PROTEIN 6.6 gm/dL (6.4-8.2); TROPONIN I < 0.015 ng/ml (<0.045)
[2018-02-15 12:25] LABS: BILIRUBIN NEGATIVE (NEGATIVE); BLOOD NEGATIVE (NEGATIVE); CLARITY SL CLOUDY (CLEAR); COLOR YELLOW (YELLOW); GLUCOSE 3+ (NEGATIVE); KETONE NEGATIVE (NEGATIVE); LEUKO ESTERASE NEGATIVE (NEGATIVE); NITRITE NEGATIVE (NEGATIVE); UROBILINOGEN 0.2 E.U./dl (0.2-1.0)
[2018-02-15 12:43] LABS: BACTERIA 2+
[2018-02-15 14:10] VITALS: BP 140/60
== END 2018-02-15 15:27 ==
LOC: ED 11:27
PROVIDERS: Emergency Medicine
DX: R06.00 Dyspnea, unspecified (principal); R07.9 Chest pain, unspecified; R11.0 Nausea; I25.10 Atherosclerotic heart disease of native coronary artery without angina pectoris; J44.9 Chronic obstructive pulmonary disease, unspecified; I10 Essential (primary) hypertension; E11.9 Type 2 diabetes mellitus without complications; E78.5 Hyperlipidemia, unspecified; E66.9 Obesity, unspecified; Z90.49 Acquired absence of other specified parts of digestive tract; Z79.899 Other long term (current) drug therapy; Z79.82 Long term (current) use of aspirin; Z79.4 Long term (current) use of insulin; Z90.710 Acquired absence of both cervix and uterus; Z87.891 Personal history of nicotine dependence

== ENCOUNTER 2018-05-16 03:04 | Inpatient (IN) | payer MEDICARE, BC ==
[2018-05-16] VITALS (7 sets, daily range): BP systolic 118–171; BP diastolic 50–67
[~2018-05-16] VITALS: Ht 152.4 cm; Wt 87.1 kg
--- NOTE | ~2018-05-16 | EKG ---
[place], [place] ELECTROCARDIOGRAM REPORT NAME: MIRTHA ROJAS UNIT #: [id number] ROOM: 406 DOCTOR: ANIBAL DRAFT REPORT BIRTHDATE: [birth year] [facility] Test Date: 2018-05-16 Test Time: 03:29:04 Pat Name: MIRTHA ROJAS Department: Room: 406 Gender: F Edge Inker Heels: : 1945 Requested By: BETH ORTIZ Order Number: [id number] Reading MD: Lashaun Fajardo MD Measurements Intervals [place] Rate: 93 P: 55 MI: 156 QRS: -19 QRSD: 77 T: 41 QT: 358 QTc: 446 Interpretive Statements Sinus rhythm Borderline left axis deviation Baseline wander in lead(s) V1 Compared to ECG 02/15/2018 11:58:17 Myocardial infarct finding no longer present Electronically Signed On 05-16-2018 9:39:02 PST by Lashaun Fajardo MD CM:EKGRPT:ELECTROCARDIOGRAM REPORT [id number] BETH SHAFFER DRAFT REPORT BETH ORTIZ DO
[2018-05-16 03:45] LABS: BASO # 0.1 10*3/uL (0.0-0.1); BASO % 0.5 % (0.0-1.0); EOS # 0.4 10*3/uL (0.0-0.4); HEMATOCRIT 39.8 % (37.0-47.0); HEMOGLOBIN 12.4 g/dl (12.0-16.0); LYMPH # 1.5 10*3/uL (1.3-4.4); LYMPH % 15.9 % (27.0-41.0); MEAN CELL VOLUME 88.6 fl (81.0-99.0); MEAN CORPUSCULAR HGB 27.6 pg (27.0-31.0); MEAN CORPUSCULAR HGB CONC 31.2 g/dl (33.0-37.0); MEAN PLATELET VOLUME 10.8 fl (9.6-12.3); MONO # 0.9 10*3/uL (0.1-1.0); MONO % 9.9 % (3.0-9.0); NEUT # 6.5 10*3/uL (2.3-7.9); PLATELET COUNT AUTOMATED 302 10*3/uL (130-400); RED BLOOD COUNT 4.49 10*6/uL (4.10-5.10); RED CELL DISTRI WIDTH 14.5 % (0-14.5); WHITE BLOOD COUNT 9.5 10*3/uL (4.8-10.8)
[2018-05-16 04:02] LABS: ALBUMIN 3.3 gm/dl (3.1-4.5); ALKALINE PHOSPHATASE 168 U/L (45-117); BUN 22 mg/dl (7-24); CHLORIDE 95 mmol/L (98-107); CREATININE 0.77 mg/dL (0.55-1.02); POTASSIUM 4.1 mmol/L (3.5-5.1); SGOT/AST 11 IU/L (3-35); SGPT/ALT 14 U/L (12-78); SODIUM 133 mmol/L (136-145); TOTAL PROTEIN 7.4 gm/dL (6.4-8.2)
[2018-05-16 04:16] LABS: TROPONIN I < 0.015 ng/ml (<0.045)
[2018-05-16 04:19] LABS: BILIRUBIN NEGATIVE (NEGATIVE); BLOOD NEGATIVE (NEGATIVE); CLARITY CLEAR (CLEAR); COLOR YELLOW (YELLOW); GLUCOSE NEGATIVE (NEGATIVE); KETONE NEGATIVE (NEGATIVE); LEUKO ESTERASE NEGATIVE (NEGATIVE); NITRITE NEGATIVE (NEGATIVE); SPECIFIC GRAVITY <= 1.005 (1.005-1.030); UROBILINOGEN 0.2 E.U./dl (0.2-1.0)
[2018-05-16 04:25] LABS: EPITHELIAL CELLS 20-25
[2018-05-16 04:26] LABS: BACTERIA TRACE; RBC 0-2 rbc/hpf (0-2); WBC 0-2 wbc/hpf (0-5)
--- NOTE | 2018-05-16 06:45 | NUR ---
Time: 644 A 73 year old FEMALE admitted to under services of BRIELLE LENTZ DO, Pt. arrived via bed from ER. Chief complaint: INTRACTABLE PAIN. MAXIM QAUINO
--- NOTE | 2018-05-16 07:24 | NUR ---
FOUR INTACT SCABS NOTED TO LEFT OUTER ANKLE
--- NOTE | 2018-05-16 07:26 | NUR ---
MEDS UPDATED PER PATIENT. UNSURE OF SOME MEDICATIONS.
--- NOTE | 2018-05-16 07:33 | NUR ---
PHYSICAL THERAPY Nursing screen received. PT orders also received. Thank you. Fanny De Jesus,PT
--- NOTE | 2018-05-16 09:00 | NUR ---
Sandwich Wrapper in to talk to patient. Patient states lives at home with alone. There are no steps in the home. Physician: bharati [facility] Patient's level of ADLs: MODERATE ASSIST Patient has working utilities: all working DME: rollator walker Follow-up physician's appointment after d/c: will be made by hospitalist nurse director upon discharge Does patient want to access PORTAL?: no Discharge plan discussed with patient, patient lives at home alone, she states [facility] and progressed and was able to return home, patient states that she isn't able to return home, that she is unable to ambulate or care for herself. discussed with her a short term halfway for rehab and patient stated she wanted to go back to [facility]. educated her on that she needed skilled care at present and [facility] was not able to provide this. patient was given the choice of facitility and [place] [facility] program services planner will send referral to [facility] for acceptance. YOLETTE ALMONTE
--- NOTE | 2018-05-16 09:37 | NUR ---
Isaiah given per patient request for chronic back pain. She rates it 12/08. Will monitor.
--- NOTE | 2018-05-16 10:11 | NUR ---
Patient still very uncomfortable. [place] helps just a bit.
--- NOTE | 2018-05-16 10:44 | NUR ---
Notified [facility] for updated med list. Awaiting fax.
--- NOTE | 2018-05-16 11:50 | NUR ---
Occupational Therapy evaluation completed on 4 with full eval to follow. Patient is moderate complexity level 63352 via chart review, testing and evaluation. Pateint has severe back pain and needs assist in all ADLs, mobility and tranfers. Recommend OT per pOC and SNF to enable return home alone. Thank you. Malissa Glover Otr/L
--- NOTE | 2018-05-16 11:51 | NUR ---
PHYSICAL THERAPY PAtient evalauted on 4, full evaluation to follow. Continue with PT as per plan of care with fall, mod (A)+, alarms and severe back pain complaints. Will require SNF. Patient is high complexity via chart review, tests and evaluation: [id number]. Thank you for this referral. Fanny De Jesus,PT
--- NOTE | 2018-05-16 13:25 | NUR ---
[place] given per patient request for back pain that radiates to L/E. Will monitor.
--- NOTE | 2018-05-16 13:43 | NUR ---
Patient requesting a referral to [facility], contacted facility and faxed referral. Waiting on review/acceptance. Will require a 3 night stay.
[2018-05-16] MEDS ORDERED: ATIVAN1 MG PO (13:55)
--- NOTE | 2018-05-16 14:10 | NUR ---
Patient states [place] helps a little, but "not really." Will continue to monitor.
--- NOTE | 2018-05-16 14:19 | NUR ---
Notified Dr. Garcia of updated med list.
--- NOTE | 2018-05-16 16:07 | NUR ---
Nursing screen received and Occupational Therapy referral received and evaluation completed. Thank you. Malissa Glover OTR/l
--- NOTE | 2018-05-16 17:38 | NUR ---
Spoke with Dr. Garcia regarding patient stating the [place] is not doing anything for the pain. No new orders at this time.
--- NOTE | 2018-05-16 18:10 | NUR ---
Called pharmacy for missing dose of Robaxin.
--- NOTE | 2018-05-16 23:15 | NUR ---
PATIENT REQUESTED AND WAS MEDICATED WITH DULCOLAX, RESTORIL AND NORCO PER PRN ORDER FOR C/O CONSTIPATION, INSOMNIA AND BACK PAIN. RATED PAIN A 8/10 WITH 10 BEING THE WORST. SEE EMAR. REINFORCED USE OF CALL LIGHT.
[2018-05-17] VITALS: BP 133/57
--- NOTE | 2018-05-17 01:18 | NUR ---
24 HR chart check completed.
--- NOTE | 2018-05-17 03:21 | NUR ---
NORCO GIVEN PER PRN ORDER FOR C/O BACK PAIN RATED PAIN A 8/10 WITH 10 BEING THE WORST. SEE EMAR. REINFORCED USE OF CALL LIGHT.
--- NOTE | 2018-05-17 03:43 | NUR ---
NORCE NOT EFFECTIVE PER PT. PATIENT MEDICATED WITH TYLENOL FOR C/O CONTINUED PAIN. SEE EMAR.
--- NOTE | 2018-05-17 03:50 | NUR ---
SPOKE WITH DR. ROMERO REGARDING C/O ANXIETY AND PAIN .
--- NOTE | 2018-05-17 04:20 | NUR ---
ATIVAN GIVEN FOR C/O ANXIETY. SEE EMAR. REINFORCED USE OF CALL LIGHT
[2018-05-17 07:16] LABS: BASO % 0.6 % (0.0-1.0); EOS # 0.4 10*3/uL (0.0-0.4); EOS % 5.9 % (1.0-4.0); HEMATOCRIT 37.2 % (37.0-47.0); HEMOGLOBIN 11.3 g/dl (12.0-16.0); LYMPH # 1.6 10*3/uL (1.3-4.4); LYMPH % 22.5 % (27.0-41.0); MEAN CORPUSCULAR HGB 27.6 pg (27.0-31.0); MEAN CORPUSCULAR HGB CONC 30.4 g/dl (33.0-37.0); MEAN PLATELET VOLUME 10.7 fl (9.6-12.3); MONO # 0.7 10*3/uL (0.1-1.0); MONO % 10.6 % (3.0-9.0); NEUT # 4.2 10*3/uL (2.3-7.9); NEUT % 59.7 % (47.0-73.0); PLATELET COUNT AUTOMATED 266 10*3/uL (130-400); RED BLOOD COUNT 4.09 10*6/uL (4.10-5.10); RED CELL DISTRI WIDTH 14.6 % (0-14.5)
--- NOTE | 2018-05-17 07:32 | NUR ---
patient accepted to [facility], 3 night stay required, patient can go Monday05/19/18 if medically stable for discharge.
[2018-05-17 07:35] LABS: ALBUMIN 2.9 gm/dl (3.1-4.5); ALKALINE PHOSPHATASE 132 U/L (45-117); BUN 14 mg/dl (7-24); CHLORIDE 101 mmol/L (98-107); CHOLESTEROL 176 mg/dL (<200); CREATININE 0.62 mg/dL (0.55-1.02); FREE T4 1.02 ng/dl (0.76-1.46); HDL CHOLESTEROL 61 mg/dl (40-60); LDL CHOLESTEROL 81 mg/dL (9-159); PHOSPHOROUS 4.3 mg/dL (2.5-4.9); POTASSIUM 4.3 mmol/L (3.5-5.1); SGOT/AST 10 IU/L (3-35); SGPT/ALT 17 U/L (12-78); SODIUM 136 mmol/L (136-145); TOTAL PROTEIN 6.5 gm/dL (6.4-8.2); TRIGLYCERIDES 168 mg/dl (<150); VLDL CHOLESTEROL 34 mg/dL (6-40)
[2018-05-17 07:49] LABS: ACT PARTIAL THROMBO TIME 22.3 SECONDS (20.8-31.5); INTERNATIONAL NORM RATIO 0.9 (2.0-3.5)
[2018-05-17 08:37] VITALS: BP 128/66
--- NOTE | 2018-05-17 08:42 | NUR ---
Awakened for VS , c/o pain to lower back w/ any movement.
[2018-05-17 09:00] LABS: VITAMIN D, 25-HYDROXY 30.2 ng/mL (30-100)
--- NOTE | 2018-05-17 09:43 | NUR ---
Medicated for c/o pain.Taking breakfast well. INcontinent Large amt urine in brief this AM. Emily care was given.
--- NOTE | 2018-05-17 10:22 | NUR ---
Medicated for constipation and anxiety. Incontinent of urine. brief changed and alon care given.
--- NOTE | 2018-05-17 10:47 | NUR ---
patient stating she doesn't want to go to [facility], she wants to try [facility] [place]. Contacted facility and faxed referral. Waiting on review/acceptance.
--- NOTE | 2018-05-17 11:30 | NUR ---
OT NOTE Pt was seen this A.M. 1:1 for 15 minute Ot session. Upon arrival pt was supine in bed, pt identified by name and . Pt had reports of 9/10 low back and presented to therapy with continous 2L-O2 via NC which she remained on throughout entire session. Educated pt on log roll technique for increased I in bed mobility with decreased pain, Pt transferred supine to sit EOB with modA for assist with UB. Pt then completed multiple sit to stand transfers from bed level with Salena and use of w/w for UE support. challenged pt's static standing tolerance needed for increased I in self care tasks and functional transfers and pt was able to tolerate aprox 20-30 seconds at a time before sitting due to fatigue and pain. Pt then completed a stand pivot to w/c with Salena X 2. There she was left under transport and nursing supervision. Continue with rec D/C plan to SNF. VIRGILIO Gaston/Fermin
--- NOTE | 2018-05-17 11:32 | NUR ---
PHYSICAL THERAPY Patient presented to therapy in supine with report of severe LBP. Patient reported a pain level of 9/10 in low back. Patient agrees to therapy session. Patient was identified by name and . Patient performed supine to sititng at EOB with MAX A X 2 with verbal cues for rolling to her R side and using L UE on railing and R elbow to push up to sitting position. Patient transferred STS with MOD A X 2 with verbal cues for pushing off railing with R HAND and bed with the L HAND. Patient stood at W/W for 30" x 2 with CGA X 2. Patient transferred back to supine in bed with MAX A X 2. Patient was left in supine with head of bed slightly elevated , call light within reach, and Bed alarm activated. Patient was left in room with Che SIMEON from TRANSPORT, and a PCT. PATIENT WAS 05/01 with this FAMILY HEALTH NURSE PRACTITIONER for 17 minutes total. RADHA RIGGINS FAMILY HEALTH NURSE PRACTITIONER
[2018-05-17 12:00] VITALS: BP 101/60
--- NOTE | 2018-05-17 12:28 | NUR ---
Returned from MRI.
--- NOTE | 2018-05-17 13:17 | NUR ---
Assisted up to [facility] , Incontinent of urine. laxitive ineffective. Requested and was given prune juice.
--- NOTE | 2018-05-17 14:28 | NUR ---
Medicated for c/o continued back pain. States "I have to poop so bad". Laxitives were given. Advised to be patient.
[2018-05-17 16:00] VITALS: BP 110/40
--- NOTE | 2018-05-17 16:16 | NUR ---
Medicated for constipation. somulent, sidelying.
--- NOTE | 2018-05-17 17:46 | NUR ---
Assisted to side of bed for dinner.Continues to c/o back pain
[2018-05-17 20:00] VITALS: BP 122/48
[2018-05-18] VITALS: BP 125/63
--- NOTE | 2018-05-18 00:38 | NUR ---
DR. THOMSON NOTIFIED OF PATIENT C/I CHEST PAIN. PATIENT STATED SHE IS FEELING BETTER NOW.
[2018-05-18 06:33] LABS: BASO % 0.5 % (0.0-1.0); EOS # 0.4 10*3/uL (0.0-0.4); EOS % 4.5 % (1.0-4.0); HEMOGLOBIN 11.7 g/dl (12.0-16.0); LYMPH # 1.7 10*3/uL (1.3-4.4); LYMPH % 21.4 % (27.0-41.0); MEAN CELL VOLUME 91.5 fl (81.0-99.0); MEAN CORPUSCULAR HGB 27.5 pg (27.0-31.0); MEAN PLATELET VOLUME 10.9 fl (9.6-12.3); MONO # 0.9 10*3/uL (0.1-1.0); MONO % 11.4 % (3.0-9.0); NEUT % 61.3 % (47.0-73.0); PLATELET COUNT AUTOMATED 276 10*3/uL (130-400); RED BLOOD COUNT 4.26 10*6/uL (4.10-5.10); RED CELL DISTRI WIDTH 14.5 % (0-14.5); WHITE BLOOD COUNT 8.1 10*3/uL (4.8-10.8)
[2018-05-18 07:12] LABS: BUN 10 mg/dl (7-24); CHLORIDE 95 mmol/L (98-107); CREATININE 0.69 mg/dL (0.55-1.02); POTASSIUM 4.6 mmol/L (3.5-5.1); SODIUM 132 mmol/L (136-145)
[2018-05-18 08:00] VITALS: BP 126/56
--- NOTE | 2018-05-18 08:32 | NUR ---
OT NOTE Attempted to see pt this A.M. for OT session and upon arrival pt was requesting to rest due to 9.5/10 low back pain. Will check back at a later time/date. VIRGILIO Gaston/Fermin
--- NOTE | 2018-05-18 09:16 | NUR ---
PHYSICAL THERAPY Patient was in supine with head bed flat and report of a pain level of 9.5/10 in the low back. Patient says she cannot do therapy right, now because she is in so much pain. Will check back later. RADHA RIGGINS RN CASE MGR
--- NOTE | 2018-05-18 11:29 | NUR ---
Patient has been accepted to [facility]hab [facility], requires a 3 night stay. Can go on Monday05/19/18 if medically stable for discharge.
[2018-05-18 12:00] VITALS: BP 138/43
--- NOTE | 2018-05-18 12:34 | NUR ---
DR CRABTREE CALLED TO ASK IF WE COULD SCHEDULE OUT PATIENT APPOINTMENT IN HIS OFFICE FOR PATIENT. AFTER SPEAKING WITH PATIENT SHE STATED THAT SHE DID NOT WANT TO MAKE AN APPOINTMENT TO FOLLOW UP AT THIS TIME BECAUSE SHE DID NOT THINK SHE WOULD BE ABLE TO MAKE IT. DR CRABTREE NOTIFIED WELL DR QUINONES.
--- NOTE | 2018-05-18 15:40 | NUR ---
PHYSICAL THERAPY This ASSISTANT DIRECTOR went to patient's room with VIRGILIO REYNAGA and Patient said she is in to much pain to participate in therapy this afternoon. NO THERAPY PROVIDED FOR THIS REASON THIS AFTERNOON. RADHA RIGGINS ASSISTANT DIRECTOR
--- NOTE | 2018-05-18 15:45 | NUR ---
OT NOTE PATIENT IN BED UPON ARRIVAL. PATIENT REPORTS THAT SHE IS HAVING TOO MUCH PAIN IN HER BACK RIGHT NOW TO COMPLETE THERAPY. WILL TRY BACK LATER TIME/DATE. PRATIBHA POOLE/Fermin
[2018-05-18 16:00] VITALS: BP 148/84
--- NOTE | 2018-05-18 18:18 | NUR ---
PATIENT RECEIVED ATIVAN FOR ANXIETY.
[2018-05-18 20:00] VITALS: BP 133/54
--- NOTE | 2018-05-18 20:00 | NUR ---
PATIENT MEDICATED WITH TYLENOL PER PRN ORDER FOR C/O BACK PAIN. RATED PAIN A 8/10 WITH 10 BEING THE WORST. SEE EMAR. REINFORCED USE OF CALL LIGHT.
--- NOTE | 2018-05-18 23:46 | NUR ---
PATIETN MEDICATED WITH SCHED PERCOCET AND ATIVAN PRN PER ORDER FOR C/O ANXIETY. SEE EMAR. REINFORCED USE OF CALL LIGHT
[2018-05-19] VITALS: BP 160/60
--- NOTE | 2018-05-19 01:00 | NUR ---
24 HR chart check completed.
--- NOTE | 2018-05-19 03:54 | NUR ---
PATIENT UNSURE OF SOME MED DOSES. STATED WE WILL HAVE TO CALL STEFAN SON IN AM
[2018-05-19 06:44] LABS: BUN 13 mg/dl (7-24); CHLORIDE 97 mmol/L (98-107); CREATININE 0.58 mg/dL (0.55-1.02); POTASSIUM 4.6 mmol/L (3.5-5.1); SODIUM 132 mmol/L (136-145)
[2018-05-19 08:00] VITALS: BP 135/77
--- NOTE | 2018-05-19 09:45 | NUR ---
PHYSICAL THERAPY PT BEING SEEN BY DOCTOR UPON ARRIVAL THIS A.Ryan MIRZA PTA
--- NOTE | 2018-05-19 09:56 | NUR ---
PATIENT GIVEN MORPHINE FOR PAIN OF THE BACK RATED 7/10.
[2018-05-19 12:00] VITALS: BP 154/53
--- NOTE | 2018-05-19 13:06 | NUR ---
OVERRID MORPHINE FROM [facility]... 2MG PER 1ML. GAVE 2MG OF MORPHINE TO PATIENT PER ORDER FROM DR VALDERRAMA.
[2018-05-19 16:00] VITALS: BP 154/62
--- NOTE | 2018-05-19 16:01 | NUR ---
PATIENT RECEIVED ATIVAN FOR ANXIETY.
--- NOTE | 2018-05-19 16:48 | NUR ---
PATIENT HAS HAD RELIEF FROM MORPHINE. PAIN HAS REDUCED TO 5/10. WORSENS WITH MOVEMENT. NO S/S OF DISTRESS. CALL LIGHT WITHIN REACH.
[2018-05-19 20:00] VITALS: BP 154/60
--- NOTE | 2018-05-19 20:01 | NUR ---
PATIENT MEDICATED WITH MORPHINE AT THIS TIME FOR COMPLAINTS OF SEVERE BACK PAIN. PATIENT ALSO REQUESTING "2 OR 3 PERCOCETS" AT THIS TIME. RN INFORMED PATIENT THAT MORPHINE WAS ORDERED FOR HER PAIN AND ALSO EDUCATED PATIENT ON THE FENTANY[place] PATCH THAT WAS ORDERED FOR HER AND PLACED TODAY. PATIENT STATES SHE HAS "NOT HAD ANY RELIEF FROM THE PAIN SINCE COMING TO THE HOSPITAL." RN INFORMED PATIENT TO ALLOW SOME TIME FOR THE MORPHINE DOSE TO TAKE EFFECT AND THAT RN WILL ROUND ON HER TO SEE IF MEDICATION HAS PROVIDED RELIEF. PATIENT VERBALIZED UNDERSTANDING. RN WILL CONTINUE TO MONITOR THIS PATIENT
--- NOTE | 2018-05-19 21:06 | NUR ---
PATIENT RESTING IN BED WITH EYES CLOSED AT THIS TIME. NO SIGNS OR SYMPTOMS OF DISTRESS. PATIENT EASILY AWAKENS TO VOICE. PATIENT STATES EARLIER PAIN MEDICATION WAS "SOMEWHAT EFFECTIVE" AND PAIN LEVEL IS NOW A 6/10 DOWN FROM 10/10. RN WILL CONTINUE TO MONITOR
--- NOTE | 2018-05-19 23:06 | NUR ---
24 HR chart check completed.
--- NOTE | 2018-05-19 23:33 | NUR ---
PATIENT MEDICATED WITH ATIVAN FOR ANXIETY AND MORPHINE FOR PAIN PER DRS ORDERS AT THIS TIME. PATIENT STATES HER PAIN IS "9 1/2 OUT OF 10" AND IS VERY "ANXIOUS AND RESTLESS" RN WILL CONTINUE TO MONITOR
[2018-05-20] VITALS: BP 149/50
--- NOTE | 2018-05-20 00:38 | NUR ---
PATIENT MEDICATERD WITH RESTORIL FOR COMPLAINTS OF SLEEPLESSNESS AT THIS TIME. RN WILL CONTINUE TO MONITOR
[2018-05-20 06:12] LABS: ALBUMIN 2.5 gm/dl (3.1-4.5); ALKALINE PHOSPHATASE 132 U/L (45-117); BUN 14 mg/dl (7-24); CHLORIDE 97 mmol/L (98-107); CREATININE 0.62 mg/dL (0.55-1.02); POTASSIUM 4.7 mmol/L (3.5-5.1); SGOT/AST 11 IU/L (3-35); SGPT/ALT 19 U/L (12-78); SODIUM 134 mmol/L (136-145); TOTAL PROTEIN 6.5 gm/dL (6.4-8.2)
--- NOTE | 2018-05-20 06:23 | NUR ---
PATIENT MEDICATED WITH ATIVAN AND MORPHINE FOR COMPLAINTS OF ANXIETY, RESTLESSNESS AND PAIN PER DRS ORDERS. RN WILL CONTINUE TO MONITOR
--- NOTE | 2018-05-20 07:50 | NUR ---
DR HUERTAS NOTIFIED OF MANUAL BP OF 180/80 AND PT'S COMPLAINTS OF CONTINUED PAIN DESPITE PAIN MED AT 0630. RN TO GIVE ANTIHYPERTENSIVES AT THIS TIME PER DR HUERTAS.
[2018-05-20 08:00] VITALS: BP 180/80
--- NOTE | 2018-05-20 08:09 | NUR ---
24 HR chart check completed.
[2018-05-20 12:00] VITALS: BP 159/67
--- NOTE | 2018-05-20 13:25 | NUR ---
DR HUERTAS NOTIFIED OF PT'S CONTINUED PAIN DESPITE INCREASE IN PAIN PATCH DOSE.
--- NOTE | 2018-05-20 13:40 | NUR ---
MEDICATED WITH IV MORPHINE ORDERED PER PT REQUEST FOR C/O BACK PAIN RATED 8/10.
[2018-05-20 16:00] VITALS: BP 168/70
--- NOTE | 2018-05-20 17:29 | NUR ---
MEDICATED WITH IV MORPHINE ORDERED FOR C/O BACK PAIN RATED 10/10, ALTHOUGH PT SEEMED CALM AND IN NO DISTRESS.
--- NOTE | 2018-05-20 18:30 | NUR ---
MEDICATION EFFECTIVE FOR PAIN.
--- NOTE | 2018-05-20 18:55 | NUR ---
PATIENT INSTRUCTED ON THE USE OF FLUTTER VALVE.
[2018-05-20 20:00] VITALS: BP 151/50
--- NOTE | 2018-05-20 21:44 | NUR ---
PATIENT MEDICATED PER DRS ORDERS WITH ATIVAN AND MORPHINE FOR COMPLAINTS OF ANXIETY AND PAIN TO LOWER BACK. 02/07. RN WILL MONITOR FOR EFFECTIVENESS.
[2018-05-21] VITALS: BP 159/54
[2018-05-21 06:32] LABS: BASO % 0.2 % (0.0-1.0); EOS % 0.1 % (1.0-4.0); HEMATOCRIT 38.4 % (37.0-47.0); HEMOGLOBIN 11.8 g/dl (12.0-16.0); LYMPH % 10.9 % (27.0-41.0); MEAN CELL VOLUME 90.8 fl (81.0-99.0); MEAN CORPUSCULAR HGB 27.9 pg (27.0-31.0); MEAN CORPUSCULAR HGB CONC 30.7 g/dl (33.0-37.0); MEAN PLATELET VOLUME 10.7 fl (9.6-12.3); MONO # 0.4 10*3/uL (0.1-1.0); MONO % 4.3 % (3.0-9.0); NEUT # 7.3 10*3/uL (2.3-7.9); NEUT % 82.9 % (47.0-73.0); PLATELET COUNT AUTOMATED 303 10*3/uL (130-400); RED BLOOD COUNT 4.23 10*6/uL (4.10-5.10); RED CELL DISTRI WIDTH 13.8 % (0-14.5); WHITE BLOOD COUNT 8.8 10*3/uL (4.8-10.8)
[2018-05-21 06:49] LABS: BUN 19 mg/dl (7-24); CHLORIDE 98 mmol/L (98-107); CREATININE 0.59 mg/dL (0.55-1.02); POTASSIUM 4.6 mmol/L (3.5-5.1); SODIUM 136 mmol/L (136-145)
[2018-05-21 08:00] VITALS: BP 150/57
--- NOTE | 2018-05-21 08:38 | NUR ---
OT NOTE Pt was seen this A.M. 1:1 for 25 minute OT session. Upon arrival pt was supine in bed, pt identified by name and . Pt had complaints of 9/10 low back pain. Pt transferred supine to sit EOB with modA for assist with UB with education on log roll to decrease pain and increase I in bed mobility. While sitting EOB pt doffed/donned her gown with Salena and donned new socks with maxA due to back pain. Pt then completed multiple sit to stand transfers from bed level with Salena and use of w/w for UE support. Challenged pt's static standing tolerance needed for increased I in self care tasks and functional transfers, pt was able to tolerate aprox 30-40 seconds at a time before sitting due to fatigue and back pain. Pt then completed sit to stand with Salena followed by stand pivot to bedside commode with modA and use of w/w. Clothing managment completed with maxA and toilet hgyiene completed with maxA. Pt transferred back into bed with Salena where she was left with head of the bed elevated, tray table in place, and bed alarm activated for safety. Continue with rec D/C plan SNF. VIRGILIO Gaston/Fermin
--- NOTE | 2018-05-21 09:34 | NUR ---
Patient accepted to [facility], 3 night stay complete. Patient is ok to go when medically stable for discharge.
--- NOTE | 2018-05-21 09:45 | NUR ---
FENTANYL PATCH REMOVED AND WASTED BY THIS NURSE AND ASHLIE, PER ORDERS.
--- NOTE | 2018-05-21 09:49 | NUR ---
INFORMED THAT CT ZAIN BIOSPY CANNOT BE COMPLETED UNTIL MONDAY D/T PATIENT BEING ON ASA AND LOVENOX, STATED THAT IF PATIENT IS DISCHARGED BY THEN IT CAN BE COMPLETED OUTPATIENT. STATED SHE WILL INFORM . STATED ASA AND LOVENOX WILL BE PLACED ON HOLD FOR NOW.
--- NOTE | 2018-05-21 10:03 | NUR ---
PRESCRIPTION OF MACROBID 10 CAPSULES SENT TO PHARMACY. CO-SIGNED BY JUDITH.
--- NOTE | 2018-05-21 11:29 | NUR ---
PATIENT MEDICATED WITH OXYCOTIN FOR 8/10 PAIN TO BACK. WILL MONITOR
[2018-05-21 12:00] VITALS: BP 168/54
--- NOTE | 2018-05-21 12:02 | NUR ---
Patient updated clinicals faxed to [facility]hab [facility], patient is ok to go when medically stable for discharge
--- NOTE | 2018-05-21 12:29 | NUR ---
PRN OXYCOTIN EFFECTIVE FOR BACK PAIN.
--- NOTE | 2018-05-21 13:07 | NUR ---
OT NOTE Attempted to see pt this P.M. for second OT session and upon arrival pt was sitting upright in recliner with reports of 7/10 pain and wanting to rest at this time. Will check back at a later time/date. VIRGILIO Gaston/Fermin
--- NOTE | 2018-05-21 13:17 | NUR ---
PHYSICAL THERAPY Patient presented to therapy in a different [facility] afternoon. Patient is now in room- 412-1. Patient says she has been sitting up for 35 minutes total and does not want to go back to bed yet. Patient reports 7/10 pain in the low back and chest. Patient says the pain in chest is caused by congestion. Patient agrees to therapy session. Patient was identified by name and . Patient performed seated bilateral LE ther ex 2 x 10 reps each in all planes of movement for strengthening in order to improve patient's functional mobility. Patient is on 2 liters of spO2 via nasal canula. Patient was left in sitting position with call light within reach and tray table in front of patient. Patient is recocmmended for SNF upon discharge.
[2018-05-21 16:00] VITALS: BP 158/78; BP 170/61
--- NOTE | 2018-05-21 18:00 | NUR ---
PATIENT MEDICATED WITH OXYCOTIN FOR BACK PAIN 11/07. WILL MONITOR.
[2018-05-21 20:00] VITALS: BP 148/51
--- NOTE | 2018-05-21 20:06 | NUR ---
ATIVAN AND TYLENOL GIVEN PER REQUEST BY PATIENT FOR 9 OUT OF 10 PAIN IN CHEST AND BACK. WILL CONTINUE MONITORING AND REASSESS.
--- NOTE | 2018-05-21 20:45 | NUR ---
ATIVAN AND TYLENOL EFFECTIVE FOR 9 OUT OF TEN PAIN. PT STATES PAIN IS A 7 OUT OF 10. RESTING COMFORTABLY.
[2018-05-22] VITALS: BP 137/41
--- NOTE | 2018-05-22 01:03 | NUR ---
OXYCODONE HCL GIVEN FOR 8 OUT OF 10 PAIN IN BACK AND CHEST. WILL MONITOR AND REASSESS.
--- NOTE | 2018-05-22 01:45 | NUR ---
OXYCODONE HCL EFFECTIVE FOR 8 OUT 10 PAIN. PT RESTING COMFORTABLY.
--- NOTE | 2018-05-22 01:51 | NUR ---
24 HR chart check completed.
--- NOTE | 2018-05-22 04:30 | NUR ---
IV SITE LEFT HAND LEAKING AT SITE. IV DISCONTINUED AND RESTARTED IN LEFT ARM. SEE DOCUMENTED INTERVENTION.
--- NOTE | 2018-05-22 07:53 | NUR ---
OT NOTE Attempted to see pt this A.M. for OT session and upon arrival pt was supine in bed asleep. Pt did not arouse to verbal stimuli. Will check back at a later time/date. VIRGILIO Gaston/Fermin
[2018-05-22 08:00] VITALS: BP 150/65
--- NOTE | 2018-05-22 08:15 | NUR ---
Shift chart check completed.
--- NOTE | 2018-05-22 10:04 | NUR ---
DR. HUERTAS IN TO SEE PATIENT
--- NOTE | 2018-05-22 11:30 | NUR ---
OT NOTE Second attempt made to see pt this A.M. for OT session and upon arrival pt was supine in bed with reports of 9.5/10 low back pain and wanting to rest. Will check back at a later time/date. VIRGILIO Gaston/Fermin
--- NOTE | 2018-05-22 11:33 | NUR ---
PHYSICAL THERAPY Patient declined therapy session this date due to having increased pain in the low back and possibly getting discharged today. RADHA RIGGINS FORM PRESS OPERATOR
[2018-05-22 12:00] VITALS: BP 159/62
--- NOTE | 2018-05-22 12:29 | NUR ---
PHYSICAL THERAPY Patient wants therapy to check back later. Patient still in pain and not feeling like doing therrapy. RADHA RIGGINS PTA
--- NOTE | 2018-05-22 13:39 | NUR ---
PT COMPLAIN OF LOWER BACK PAIN 01/08. OXYIR GIVEN, SEE MAR
--- NOTE | 2018-05-22 13:45 | NUR ---
PHYSICAL THERAPY Patient is unable to do therapy due to not feeling well and having severe LBP. RADHA RIGGINS PTA
[2018-05-22 16:00] VITALS: BP 144/44
--- NOTE | 2018-05-22 16:24 | NUR ---
[facility] HERE TO SEE PATIENT.
--- NOTE | 2018-05-22 16:53 | NUR ---
NOTIFIED DR. QUINONES THAT PATIENT IS COMPLAINING OF PAIN 02/07 AT THIS TIME AND HAS NO PAIN MEDICATION AVAILABLE UNTIL 193. DR. QUINONES IS GOING TO DISCUSS PAIN MEDICATION WITH DR. HUERTAS
[2018-05-22 20:00] VITALS: BP 117/58
--- NOTE | 2018-05-22 22:17 | NUR ---
ATIVAN GIVEN PER ORDER FOR ANXIETY PER PT. REQUEST.
--- NOTE | 2018-05-22 23:15 | NUR ---
PT. SLEEPING ATIVAN EFFECTIVE.
[2018-05-23] VITALS: BP 141/54
--- NOTE | 2018-05-23 02:32 | NUR ---
24 HR chart check completed.
[2018-05-23 06:23] LABS: BASO % 0.2 % (0.0-1.0); HEMATOCRIT 41.3 % (37.0-47.0); HEMOGLOBIN 12.3 g/dl (12.0-16.0); LYMPH % 11.2 % (27.0-41.0); MEAN CELL VOLUME 91.8 fl (81.0-99.0); MEAN CORPUSCULAR HGB 27.3 pg (27.0-31.0); MEAN CORPUSCULAR HGB CONC 29.8 g/dl (33.0-37.0); MEAN PLATELET VOLUME 10.8 fl (9.6-12.3); MONO # 0.3 10*3/uL (0.1-1.0); MONO % 3.4 % (3.0-9.0); NEUT # 7.8 10*3/uL (2.3-7.9); NEUT % 83.5 % (47.0-73.0); PLATELET COUNT AUTOMATED 319 10*3/uL (130-400); RED CELL DISTRI WIDTH 13.8 % (0-14.5); WHITE BLOOD COUNT 9.3 10*3/uL (4.8-10.8)
[2018-05-23 06:25] LABS: CREATININE 0.74 mg/dL (0.55-1.02)
[2018-05-23 08:00] VITALS: BP 118/64
--- NOTE | 2018-05-23 08:04 | NUR ---
OT NOTE Attempted to see pt this A.M. for OT session and upon arrival pt was having reports of 9.5/10 pain in her low back and also reports of being D/C later today so wanting to rest. Will check with nursing and continue with POC as able. VIRGILIO Gaston/Fermin
--- NOTE | 2018-05-23 09:30 | NUR ---
[facility] stated they met with the patient yesterday and explained all services and options. Patient stated she is scheduled to have a biopsy done this monday and she would like to follow through with that to see the results. Hospice stated they will discuss with patient again at a later date.
[2018-05-23] MEDS ORDERED: PREDNISONE10 MG PO (11:28)
[2018-05-23] MEDS ORDERED: OXYCONTIN10 M1 PO (11:28)
[2018-05-23] MEDS ORDERED: OXYCODONE HCL10 M1 PO (11:28)
[2018-05-23] MEDS ORDERED: ATIVAN1 MG PO (11:28)
[2018-05-23 12:00] VITALS: BP 156/66
--- NOTE | 2018-05-23 12:16 | NUR ---
OXY IR 15 MG GIVEN FOR C/O BACK PAIN,01/08.
--- NOTE | 2018-05-23 12:57 | NUR ---
patient is [facility]; [facility]charge and follow up information faxed to [facility] and messaged to Fe.
--- NOTE | 2018-05-23 13:13 | NUR ---
Patients discharge cancelled. According to the [facility], if a patient goes to their facility as a skilled patient, they would be responsible for paying for her biopsy and they are not willing to do that. Contacted Dr. Leal and explained situation, he stated he is going to cancel the discharge. Notified [facility], cancelled ambulance, notified [facility] clerks.
--- NOTE | 2018-05-23 13:34 | NUR ---
D/C CANCELLED D/T REHAB SUITES REFUSING TO BE RESPONSIBLE FINANCIALLY FOR CT GUIDED BIOPSY ON 05/25/18. PT WILL REMAIN INPOATIENT UNTIL THEN.
[2018-05-23 16:02] VITALS: BP 145/51
--- NOTE | 2018-05-23 16:04 | NUR ---
OXY IR 15 MG GIVEN FOR C/O BREAKTHROUGH BACK PAIN,12/08
[2018-05-23 20:00] VITALS: BP 155/56
--- NOTE | 2018-05-23 21:12 | NUR ---
ATIVAN GIVEN PER ORDER FOR ANXIETY. SEE MAR.
--- NOTE | 2018-05-23 22:20 | NUR ---
ATIVAN EFFECTIVE FOR ANXIETY.
--- NOTE | 2018-05-23 22:58 | NUR ---
24 HR chart check completed.
[2018-05-24] VITALS: BP 145/64; BP 160/63
--- NOTE | 2018-05-24 05:56 | NUR ---
OXYCODONE 15MG GIVEN PER ORDER FOR PAIN BACK PER PT. RATED "7" SEE MAR.
--- NOTE | 2018-05-24 06:50 | NUR ---
OXYCODONE EFFECTIVE FOR PAIN. PT. RESTING COMFORTABLY.
[2018-05-24 08:00] VITALS: BP 141/46
--- NOTE | 2018-05-24 10:33 | NUR ---
DR AYERS AND TEAM ROUNDED AND SEEN PT.
[2018-05-24 12:00] VITALS: BP 138/72
--- NOTE | 2018-05-24 13:51 | NUR ---
OXY IR 15 MG GIVEN FOR C/O BREAKTHROUGH BACK PAIN,02/07.
--- NOTE | 2018-05-24 14:43 | NUR ---
PT RANG OUT CALL LIGHT TO DISCUSS HER DECISION TO NOT HAVE PREVIOUSLY SCHEDULED BIOPSY OF RIGHT LUNG. PT REQUESTED TO SPEAK TO HOSPICE AND REQUESTED TO CHANGE HER CODE STATUS. I NOTIFIED DR QUINONES. DR QUINONES ASKED ME TO CONTACT APPROPRIATE PERSONNEL.I THEN SPOKE WITH TERESITA IN GRAIN RECEIVER.
--- NOTE | 2018-05-24 14:51 | NUR ---
Kelly ANDRE, in to office stating patient has requested to speak with Marycruz from [facility] again; She states patient in now requesting to change her code status and would like to be on hospice. I contacted Sharon from [facility], who will be in within the hour to talk with the patient again. Hospice criteria requires patient to be on IV pain medications with pain not under control prior to being able to make patient GIP (in patient). Spoke to Kelly ANDRE who will discuss with physicians. Will follow.
--- NOTE | 2018-05-24 14:57 | NUR ---
Pierre called back and stated patient must be on IV pain meds for 24 hours and pain uncontrolled. Patient would also have to agree to not have biopsy prior to making her GIP.
[2018-05-24 16:00] VITALS: BP 149/51
--- NOTE | 2018-05-24 16:52 | NUR ---
[facility] CAME IN AND DISCUSSED PALLIATIVE CARE WITH PT. DR QUINONES SPOKE WITH KORIN FROM [facility] AND NOTIFIED HER OF PT WISHES.CODE STA[facility] CHANGED TO DNR-CC PER PT REQUEST.
--- NOTE | 2018-05-24 17:49 | NUR ---
OXY IR 15 MG GIVEN FOR C/O BACK PAIN,01/08.
--- NOTE | 2018-05-24 19:22 | NUR ---
AWAKE/ALERT FOR BEDSIDE SHIFT REPORT.
[2018-05-24 20:00] VITALS: BP 154/50
--- NOTE | 2018-05-24 21:04 | NUR ---
NOTIFIED DR BROWN OF PATIENT BECOMING CCA TODAY AND NEEDING NEW ORDER IN THE COMPUTER. STATED HE WILL PUT IT IN.
--- NOTE | 2018-05-24 22:44 | NUR ---
PATIENT IV LEAKING AND PAINFUL. DC'D. 22G RESTARTED IN RIGHT FOREARM AT THIS TIME.
[2018-05-25] VITALS: BP 145/54
--- NOTE | 2018-05-25 02:18 | NUR ---
PATIENT RESTING COMFORTABLY IN BED. NO VOICED COMPLAINTS AT THIS TIME. BED IN LOW POSITION, WHEELS LOCKED, CALL LIGHT IN REACH
[2018-05-25 06:22] LABS: INTERNATIONAL NORM RATIO 1.1 (2.0-3.5)
[2018-05-25 07:19] VITALS: BP 142/50
--- NOTE | 2018-05-25 08:46 | NUR ---
Discussing options with Sharon from [facility]. Patient discussed options with her and decided she does not want to have the biopsy on Monday. The current plan is to have patient go to a senior living facility under hospice services, however patient doesn't currently have medicaid. Facility must be willing to take patient, assist with applying for medicaid and take medicaid pending. [facility] stated they cannot accept patient under those conditions. Checking with Trenton Carnes, will follow.
--- NOTE | 2018-05-25 09:14 | NUR ---
NIKKI Alan stated patient has changed her mind again and would like to continue with a biopsy and move forward with skilled care. [facility] and at this time they are no longer willing to accept this patient; they are unable to meet her needs.
--- NOTE | 2018-05-25 09:26 | NUR ---
Attempted to contact Caroline Quan at [facility] to discuss accepting this patient; Caroline will not be in today until 10AM, left message for her to return call. Faxed referral for review.
--- NOTE | 2018-05-25 10:14 | NUR ---
Spoke with Caroline Quan at [facility], she stated patient is accepted to their facility and can go today under her Medicare; She stated they will start the application for Medicaid and they are also ok with patient returning to hospital for a biopsy. They feel if its out patient it should be covered under her medicare part B, but if they get billed for it that is fine also. They will provide transportation to the hosptial when patients biopsy surgery is scheduled. Patient hospital exemption changed in the [employer] system. Patient is ok to go today.
--- NOTE | 2018-05-25 10:25 | NUR ---
OT NOTE Attempted to see pt this A.M. for OT session and upon arrival pt was supine in bed. Pt was requesting to rest due to back pain and fatigue and stating "I am scared of what is going to happen next." Will check back at a later time/date. VIRGILIO Gaston/Fermin
--- NOTE | 2018-05-25 10:27 | NUR ---
PHYSICAL THERAPY This ADMINISTRATIVE LAW JUDGE checked with patient to see if she was able to participate in therapy session this AM. Patient was unable to participate in therapy because of depression, not feeling well, and being afraid of whats coming in the future. Will check back this afternoon. RADHA RIGGINS ADMINISTRATIVE LAW JUDGE
[2018-05-25] MEDS ORDERED: OXYCONTIN40 M1 PO (10:38)
[2018-05-25] MEDS ORDERED: OXYCODONE HCL10 M1 PO (10:38)
[2018-05-25] MEDS ORDERED: VIBRAMYCIN100 MG PO (10:40)
--- NOTE | 2018-05-25 15:00 | NUR ---
REPORT CALLED TO SAI AT [facility] HILDA STATED SHE CALLED THE FAMILY TO NOTIFY THEM SHE IS RETURNING TO [facility] JOHN TO PICK HER UP AT 4:30
--- NOTE | 2018-05-25 16:05 | NUR ---
OCCUPATIONAL THERAPY CO-SIGN I approve of the Occupational Therapy notes written above. WILLIE PATEL OTR/Fermin
--- NOTE | 2018-05-25 16:34 | NUR ---
C/O PAIN TO BACK OF 9.5/10 PRN OXYCODONE GIVEN AT THIS TIME. WILL CONT TO MONITOR. CALL LIGHT IN REACH.
--- NOTE | 2018-05-25 17:34 | NUR ---
PT DISCHARGED. IV REMOVED AND PRESSURE DRESSING APPLIED. TAKEN VIA [employer] TO [facility].
--- NOTE | 2018-05-28 07:51 | NUR ---
PHYSICAL THERAPY CO-SIGN I approve of the Phyical Therapy notes written above. ERICA ESCOBEDO PT
--- NOTE | 2018-05-28 08:01 | NUR ---
OCCUPATIONAL THERAPY CO-SIGN I approve of the Occupational Therapy notes written above. WILLIE PATEL OTR/Fermin
== END 2018-05-25 17:34 | disposition other institution (70) | DRG 542 ==
LOC: ED 03:04 → 4E 06:27 → EDHOLD 06:27 → 4E 06:41
PROVIDERS: Family Medicine; Internal Medicine; Student in an Organized Health Care Education/Training Program; ADMIT Internal Medicine
DX: M48.56XA Collapsed vertebra, not elsewhere classified, lumbar region, initial encounter for fracture (principal); E43 Unspecified severe protein-calorie malnutrition; E87.1 Hypo-osmolality and hyponatremia; C34.31 Malignant neoplasm of lower lobe, right bronchus or lung; C79.51 Secondary malignant neoplasm of bone; R26.2 Difficulty in walking, not elsewhere classified; G89.29 Other chronic pain; I10 Essential (primary) hypertension; E66.9 Obesity, unspecified; I25.10 Atherosclerotic heart disease of native coronary artery without angina pectoris; E55.9 Vitamin D deficiency, unspecified; M48.54XA Collapsed vertebra, not elsewhere classified, thoracic region, initial encounter for fracture; J44.9 Chronic obstructive pulmonary disease, unspecified; F41.9 Anxiety disorder, unspecified; R74.8 Abnormal levels of other serum enzymes; E13.65 Other specified diabetes mellitus with hyperglycemia; E78.5 Hyperlipidemia, unspecified; E87.8 Other disorders of electrolyte and fluid balance, not elsewhere classified; R00.1 Bradycardia, unspecified; R05 Cough; Z87.440 Personal history of urinary (tract) infections; Z87.01 Personal history of pneumonia (recurrent); Z90.49 Acquired absence of other specified parts of digestive tract; Z90.710 Acquired absence of both cervix and uterus; Z87.891 Personal history of nicotine dependence; Z82.49 Family history of ischemic heart disease and other diseases of the circulatory system; Z79.82 Long term (current) use of aspirin; Z79.899 Other long term (current) drug therapy; Z68.37 Body mass index [BMI] 37.0-37.9, adult

== ENCOUNTER 2018-05-29 09:08 | Inpatient (IN) | payer MEDICARE, BC ==
[2018-05-29] VITALS (7 sets, daily range): BP systolic 108–150; BP diastolic 37–60
[~2018-05-29] VITALS: Ht 152.4 cm; Wt 88.6 kg
--- NOTE | ~2018-05-29 | EKG ---
[place], [place] ELECTROCARDIOGRAM REPORT NAME: MIRTHA ROJAS UNIT #: [id number] ROOM: DOCTOR: ANIBAL DRAFT REPORT BIRTHDATE: [birth year] [facility] Test Date: 2018-05-29 Test Time: 09:36:37 Pat Name: MIRTHA ROJAS Department: Room: Gender: F Russet Repairer: : 1945 Requested By: CAMRYN WU Order Number: [id number] Reading MD: Measurements Intervals [place] Rate: 102 P: 79 VT: 139 QRS: -9 QRSD: 84 T: 82 QT: 339 QTc: 442 Interpretive Statements Sinus tachycardia Atrial premature complex Abnormal R-wave progression, late transition Baseline wander in lead(s) V2,V3 Compared to ECG 05/16/2018 03:29:04 Atrial premature complex(es) now present Sinus rhythm no longer present CM:EKGRPT:ELECTROCARDIOGRAM REPORT [id number] CAMRYN SHAFFER DRAFT REPORT CAMRYN WU DO
--- NOTE | ~2018-05-29 | EKG ---
[place], [place] ELECTROCARDIOGRAM REPORT NAME: MIRTHA ROJAS UNIT #: [id number] ROOM: [facility] DOCTOR: ANIBAL DRAFT REPORT BIRTHDATE: [birth year] [facility] Test Date: 2018-06-05 Test Time: 16:51:32 Pat Name: MIRTHA ROJAS Department: Room: [facility] 1 Gender: F Chief Deputy Court Clerk: : 1945 Requested By: ELIDIA FLEMING Order Number: [id number] Reading MD: Maximiliano Stephens MD Measurements Intervals [place] Rate: 89 P: 53 MS: 153 QRS: -21 QRSD: 83 T: 53 QT: 364 QTc: 443 Interpretive Statements Sinus rhythm Left ventricular hypertrophy Baseline wander in lead(s) V1,V2 Compared to ECG 06/05/2018 11:23:59 No significant changes Electronically Signed On 06-07-2018 7:40:34 PST by Maximiliano Stephens MD CM:EKGRPT:ELECTROCARDIOGRAM REPORT [id number] ELIDIA SHAFFER DRAFT REPORT ELIDIA FLEMING DO
--- NOTE | ~2018-05-29 | EKG ---
[place], [place] ELECTROCARDIOGRAM REPORT NAME: MIRTHA ROJAS UNIT #: [id number] ROOM: [facility] DOCTOR: ANIBAL DRAFT REPORT BIRTHDATE: [birth year] [facility] Test Date: 2018-06-05 Test Time: 11:23:59 Pat Name: MIRTHA ROJAS Department: Room: [facility] 1 Gender: F Extruder Tender: Niesha Osorio : 1945 Requested By: ELIDIA FLEMING Order Number: [id number] Reading MD: Lashaun Fajardo MD Measurements Intervals [place] Rate: 88 P: 66 CT: 142 QRS: -22 QRSD: 85 T: 41 QT: 357 QTc: 432 Interpretive Statements Sinus rhythm Abnormal R-wave progression, late transition Left ventricular hypertrophy Baseline wander in lead(s) II Compared to ECG 05/29/2018 09:36:37 Left ventricular hypertrophy now present Sinus tachycardia no longer present Atrial premature complex(es) no longer present Electronically Signed On 06-05-2018 12:21:35 PST by Lashaun Fajardo MD CM:EKGRPT:ELECTROCARDIOGRAM REPORT [id number] ELIDIA SHAFFER DRAFT REPORT ELIDIA FLEMING DO
--- NOTE | ~2018-05-29 | EKG ---
[place], [place] ELECTROCARDIOGRAM REPORT NAME: MIRTHA ROJAS UNIT #: [id number] ROOM: [facility] DOCTOR: ANIBAL DRAFT REPORT BIRTHDATE: [birth year] [facility] Test Date: 2018-06-05 Test Time: 14:22:34 Pat Name: MIRTHA ROJAS Department: Room: [facility] 1 Gender: F Window Tinter: Toshia Steinberg : 1945 Requested By: ELIDIA FLEMING Order Number: [id number] Reading MD: Maximiliano Stephens MD Measurements Intervals [place] Rate: 74 P: 65 TN: 165 QRS: -19 QRSD: 82 T: 39 QT: 384 QTc: 426 Interpretive Statements Sinus rhythm Left ventricular hypertrophy Compared to earlier ECG this date No significant change Electronically Signed On 06-07-2018 7:38:11 PST by Maximiliano Stephens MD CM:EKGRPT:ELECTROCARDIOGRAM REPORT [id number] ELIDIA SHAFFER DRAFT REPORT ELIDIA FLEMING DO
[~2018-05-29 09:08] MED LIST changes: +OXYCODONE HCL10 M1 PO; +OXYCONTIN10 M1 PO; +OXYCONTIN40 M1 PO; +VIBRAMYCIN100 MG PO
[2018-05-29 09:44] LABS: BILIRUBIN NEGATIVE (NEGATIVE); BLOOD 2+ (NEGATIVE); CLARITY TURBID (CLEAR); COLOR YELLOW (YELLOW); GLUCOSE NEGATIVE (NEGATIVE); KETONE TRACE (NEGATIVE); LEUKO ESTERASE 2+ (NEGATIVE); NITRITE POSITIVE (NEGATIVE); PH 8.5 (5.0-9.0); UROBILINOGEN 0.2 E.U./dl (0.2-1.0)
[2018-05-29 09:57] LABS: WBC TNTC wbc/hpf (0-5)
[2018-05-29 09:59] LABS: BASO % 0.1 % (0.0-1.0); EOS # 0.2 10*3/uL (0.0-0.4); EOS % 2.1 % (1.0-4.0); HEMATOCRIT 40.1 % (37.0-47.0); HEMOGLOBIN 12.4 g/dl (12.0-16.0); LYMPH # 1.7 10*3/uL (1.3-4.4); LYMPH % 17.6 % (27.0-41.0); MEAN CELL VOLUME 90.5 fl (81.0-99.0); MEAN CORPUSCULAR HGB CONC 30.9 g/dl (33.0-37.0); MEAN PLATELET VOLUME 10.7 fl (9.6-12.3); MONO # 0.9 10*3/uL (0.1-1.0); MONO % 9.5 % (3.0-9.0); NEUT # 6.8 10*3/uL (2.3-7.9); NEUT % 70.1 % (47.0-73.0); PLATELET COUNT AUTOMATED 196 10*3/uL (130-400); RED BLOOD COUNT 4.43 10*6/uL (4.10-5.10); RED CELL DISTRI WIDTH 14.7 % (0-14.5); WHITE BLOOD COUNT 9.7 10*3/uL (4.8-10.8)
[2018-05-29 10:07] LABS: ACT PARTIAL THROMBO TIME 18.7 SECONDS (20.8-31.5)
[2018-05-29 10:13] LABS: ALBUMIN 2.5 gm/dl (3.1-4.5); ALKALINE PHOSPHATASE 189 U/L (45-117); BUN 13 mg/dl (7-24); CHLORIDE 98 mmol/L (98-107); LIPASE 94 U/L (73-393); SGOT/AST 19 IU/L (3-35); SGPT/ALT 23 U/L (12-78); SODIUM 135 mmol/L (136-145)
[2018-05-29 10:19] LABS: TROPONIN I < 0.015 ng/ml (<0.045)
[2018-05-29] MEDS ORDERED: DULCOLAX10 M1 R (12:10)
[2018-05-29] MEDS ORDERED: FLEET ENEMA 13133 ML R (12:23)
[2018-05-29] MEDS ORDERED: NYSTATIN15 GM T (12:26)
[2018-05-29] MEDS ORDERED: MILK OF MA400 MG/51 PO (12:27)
[2018-05-29] MEDS ORDERED: GLUCOSE15 GM/59 M PO (12:34)
[2018-05-29] MEDS ORDERED: ACTOS30 M1 PO (12:36)
[2018-05-29] MEDS ORDERED: VITAMIN D400 UNI1 PO (12:37)
[2018-05-30] VITALS: BP 130/54
[2018-05-30 04:30] VITALS: BP 168/60
[2018-05-30 05:06] LABS: ABG BASE EXCESS 5.1 mmol/L (-2.0-2.0); ABG HCO3 32.2 mmol/l (22-26); ABG O2 SATURATION 94.2 % (95-97); ARTERIAL BLOOD GAS PH 7.319 (7.35-7.45); ARTERIAL BLOOD GAS PO2 78.7 mmHg (80-90)
[2018-05-30 06:42] LABS: BASO % 0.2 % (0.0-1.0); EOS # 0.2 10*3/uL (0.0-0.4); EOS % 2.3 % (1.0-4.0); HEMATOCRIT 39.3 % (37.0-47.0); HEMOGLOBIN 11.6 g/dl (12.0-16.0); LYMPH # 1.7 10*3/uL (1.3-4.4); LYMPH % 17.6 % (27.0-41.0); MEAN CELL VOLUME 93.1 fl (81.0-99.0); MEAN CORPUSCULAR HGB 27.5 pg (27.0-31.0); MEAN CORPUSCULAR HGB CONC 29.5 g/dl (33.0-37.0); MEAN PLATELET VOLUME 11.2 fl (9.6-12.3); MONO % 10.7 % (3.0-9.0); NEUT # 6.5 10*3/uL (2.3-7.9); NEUT % 68.5 % (47.0-73.0); PLATELET COUNT AUTOMATED 173 10*3/uL (130-400); RED BLOOD COUNT 4.22 10*6/uL (4.10-5.10); RED CELL DISTRI WIDTH 14.8 % (0-14.5); WHITE BLOOD COUNT 9.5 10*3/uL (4.8-10.8)
[2018-05-30 06:58] LABS: ALBUMIN 2.3 gm/dl (3.1-4.5); ALKALINE PHOSPHATASE 170 U/L (45-117); BUN 10 mg/dl (7-24); CHLORIDE 100 mmol/L (98-107); CREATININE 0.63 mg/dL (0.55-1.02); PHOSPHOROUS 3.2 mg/dL (2.5-4.9); POTASSIUM 3.9 mmol/L (3.5-5.1); SGOT/AST 15 IU/L (3-35); SGPT/ALT 20 U/L (12-78); SODIUM 138 mmol/L (136-145); TOTAL PROTEIN 5.8 gm/dL (6.4-8.2)
[2018-05-30 08:00] VITALS: BP 136/92
[2018-05-30 14:33] VITALS: BP 106/42
[2018-05-30 16:00] VITALS: BP 148/99
[2018-05-30 20:00] VITALS: BP 142/56
[2018-05-31] VITALS: BP 123/37
[2018-05-31 08:00] VITALS: BP 112/62
[2018-05-31 12:00] VITALS: BP 114/50
[2018-05-31 16:00] VITALS: BP 112/48
[2018-05-31 20:00] VITALS: BP 96/32
[2018-06-01] VITALS: BP 117/48
[2018-06-01 06:13] LABS: TOTAL PROTEIN, SERUM 4.9 g/dL (6.0-8.5)
[2018-06-01 07:07] LABS: IMMUNOGLOBULIN G, QNT 417 mg/dL (700-1600); IMMUNOGLOBULIN M, QNT 137 mg/dL (26-217)
[2018-06-01 08:00] VITALS: BP 130/54
[2018-06-01 12:00] VITALS: BP 135/63
[2018-06-01 15:09] LABS: A/G RATIO 0.8 (0.7-1.7); ALBUMIN 2.2 g/dL (2.9-4.4); ALPHA-1-GLOBULIN 0.3 g/dL (0.0-0.4); BETA GLOBULIN 0.8 g/dL (0.7-1.3); GAMMA GLOBULIN 0.5 g/dL (0.4-1.8); GLOBULIN, TOTAL 2.7 g/dL (2.2-3.9); M-SPIKE Not Observed g/dL (Not Observed)
[2018-06-01 16:00] VITALS: BP 116/73
[2018-06-01 20:00] VITALS: BP 148/44
[2018-06-02] VITALS: BP 144/59
[2018-06-02 06:58] LABS: BASO % 0.2 % (0.0-1.0); EOS # 0.2 10*3/uL (0.0-0.4); EOS % 3.5 % (1.0-4.0); HEMATOCRIT 37.8 % (37.0-47.0); HEMOGLOBIN 11.6 g/dl (12.0-16.0); LYMPH # 1.4 10*3/uL (1.3-4.4); LYMPH % 22.8 % (27.0-41.0); MEAN CELL VOLUME 91.5 fl (81.0-99.0); MEAN CORPUSCULAR HGB 28.1 pg (27.0-31.0); MEAN CORPUSCULAR HGB CONC 30.7 g/dl (33.0-37.0); MEAN PLATELET VOLUME 11.4 fl (9.6-12.3); MONO # 0.8 10*3/uL (0.1-1.0); MONO % 13.3 % (3.0-9.0); NEUT # 3.6 10*3/uL (2.3-7.9); NEUT % 59.7 % (47.0-73.0); PLATELET COUNT AUTOMATED 169 10*3/uL (130-400); RED BLOOD COUNT 4.13 10*6/uL (4.10-5.10); RED CELL DISTRI WIDTH 14.7 % (0-14.5)
[2018-06-02 07:29] LABS: ALBUMIN 2.2 gm/dl (3.1-4.5); ALKALINE PHOSPHATASE 141 U/L (45-117); BUN 6 mg/dl (7-24); CHLORIDE 101 mmol/L (98-107); CREATININE 0.46 mg/dL (0.55-1.02); PHOSPHOROUS 3.2 mg/dL (2.5-4.9); POTASSIUM 4.3 mmol/L (3.5-5.1); SGOT/AST 9 IU/L (3-35); SGPT/ALT 19 U/L (12-78); SODIUM 141 mmol/L (136-145)
[2018-06-02 12:00] VITALS: BP 142/58
[2018-06-02 16:00] VITALS: BP 135/47
[2018-06-02 20:00] VITALS: BP 156/65
[2018-06-03] VITALS: BP 170/70
[2018-06-03 02:45] VITALS: BP 140/90
[2018-06-03 06:32] LABS: BASO % 0.1 % (0.0-1.0); EOS # 0.3 10*3/uL (0.0-0.4); EOS % 3.5 % (1.0-4.0); HEMATOCRIT 36.3 % (37.0-47.0); HEMOGLOBIN 10.7 g/dl (12.0-16.0); LYMPH # 1.2 10*3/uL (1.3-4.4); LYMPH % 15.5 % (27.0-41.0); MEAN CELL VOLUME 92.8 fl (81.0-99.0); MEAN CORPUSCULAR HGB 27.4 pg (27.0-31.0); MEAN CORPUSCULAR HGB CONC 29.5 g/dl (33.0-37.0); MONO # 0.8 10*3/uL (0.1-1.0); MONO % 10.9 % (3.0-9.0); NEUT # 5.1 10*3/uL (2.3-7.9); NEUT % 69.5 % (47.0-73.0); PLATELET COUNT AUTOMATED 194 10*3/uL (130-400); RED BLOOD COUNT 3.91 10*6/uL (4.10-5.10); RED CELL DISTRI WIDTH 14.6 % (0-14.5); WHITE BLOOD COUNT 7.4 10*3/uL (4.8-10.8)
[2018-06-03 06:59] LABS: BUN 4 mg/dl (7-24); CHLORIDE 96 mmol/L (98-107); CREATININE 0.43 mg/dL (0.55-1.02); POTASSIUM 4.1 mmol/L (3.5-5.1); SODIUM 138 mmol/L (136-145)
[2018-06-03 08:00] VITALS: BP 110/68
[2018-06-03 12:00] VITALS: BP 156/82
[2018-06-03 16:00] VITALS: BP 141/58
[2018-06-03 20:00] VITALS: BP 159/62
[2018-06-04] VITALS: BP 106/51
[2018-06-04 06:44] LABS: BASO % 0.3 % (0.0-1.0); EOS # 0.2 10*3/uL (0.0-0.4); EOS % 3.3 % (1.0-4.0); HEMATOCRIT 37.1 % (37.0-47.0); HEMOGLOBIN 10.9 g/dl (12.0-16.0); LYMPH # 1.2 10*3/uL (1.3-4.4); LYMPH % 16.5 % (27.0-41.0); MEAN CORPUSCULAR HGB 27.3 pg (27.0-31.0); MEAN CORPUSCULAR HGB CONC 29.4 g/dl (33.0-37.0); MEAN PLATELET VOLUME 11.1 fl (9.6-12.3); MONO # 0.8 10*3/uL (0.1-1.0); MONO % 10.7 % (3.0-9.0); NEUT # 4.8 10*3/uL (2.3-7.9); NEUT % 68.3 % (47.0-73.0); PLATELET COUNT AUTOMATED 211 10*3/uL (130-400); RED BLOOD COUNT 3.99 10*6/uL (4.10-5.10); RED CELL DISTRI WIDTH 14.7 % (0-14.5)
[2018-06-04 06:50] LABS: BUN 5 mg/dl (7-24); CHLORIDE 97 mmol/L (98-107); CREATININE 0.61 mg/dL (0.55-1.02); POTASSIUM 3.9 mmol/L (3.5-5.1); SODIUM 140 mmol/L (136-145)
[2018-06-04 08:00] VITALS: BP 128/60
[2018-06-04 12:00] VITALS: BP 128/60; BP 138/55
[2018-06-04 16:00] VITALS: BP 128/46
[2018-06-04 20:00] VITALS: BP 150/52
[2018-06-05] VITALS (7 sets, daily range): BP systolic 112–152; BP diastolic 49–68
[2018-06-05 11:29] LABS: BASO % 0.3 % (0.0-1.0); EOS # 0.3 10*3/uL (0.0-0.4); EOS % 3.5 % (1.0-4.0); HEMOGLOBIN 11.6 g/dl (12.0-16.0); LYMPH # 1.1 10*3/uL (1.3-4.4); LYMPH % 14.3 % (27.0-41.0); MEAN CELL VOLUME 91.3 fl (81.0-99.0); MEAN CORPUSCULAR HGB 27.9 pg (27.0-31.0); MEAN CORPUSCULAR HGB CONC 30.5 g/dl (33.0-37.0); MEAN PLATELET VOLUME 10.5 fl (9.6-12.3); MONO # 0.7 10*3/uL (0.1-1.0); MONO % 8.9 % (3.0-9.0); NEUT # 5.8 10*3/uL (2.3-7.9); NEUT % 72.2 % (47.0-73.0); PLATELET COUNT AUTOMATED 237 10*3/uL (130-400); RED BLOOD COUNT 4.16 10*6/uL (4.10-5.10); RED CELL DISTRI WIDTH 14.8 % (0-14.5)
[2018-06-05 11:45] LABS: ALBUMIN 2.6 gm/dl (3.1-4.5); ALKALINE PHOSPHATASE 135 U/L (45-117); BUN 7 mg/dl (7-24); CHLORIDE 96 mmol/L (98-107); CREATININE 0.59 mg/dL (0.55-1.02); POTASSIUM 4.3 mmol/L (3.5-5.1); SGOT/AST 20 IU/L (3-35); SGPT/ALT 16 U/L (12-78); SODIUM 139 mmol/L (136-145); TOTAL PROTEIN 6.7 gm/dL (6.4-8.2)
[2018-06-06] VITALS: BP 145/54
[2018-06-06 07:26] VITALS: BP 148/62
[2018-06-06 07:57] VITALS: BP 168/68
[2018-06-06] MEDS ORDERED: OXYCODONE HCL10 M1 PO (11:50)
== END 2018-06-06 15:08 | DRG 871 ==
LOC: ED 09:08 → EDHOLD 11:15 → 5E 11:15
PROVIDERS: Emergency Medicine; Family Medicine; Internal Medicine; Registered Nurse; Student in an Organized Health Care Education/Training Program; ADMIT Internal Medicine
PROC: 5A09357 Assistance with Respiratory Ventilation, Less than 24 Consecutive Hours, Continuous Positive Airway Pressure (ICD-10-PCS; principal; 2018-05-30)
DX: A41.9 Sepsis, unspecified organism (principal); E43 Unspecified severe protein-calorie malnutrition; G93.41 Metabolic encephalopathy; N39.0 Urinary tract infection, site not specified; E87.1 Hypo-osmolality and hyponatremia; R91.1 Solitary pulmonary nodule; E11.65 Type 2 diabetes mellitus with hyperglycemia; E83.51 Hypocalcemia; I10 Essential (primary) hypertension; B96.4 Proteus (mirabilis) (morganii) as the cause of diseases classified elsewhere; I25.10 Atherosclerotic heart disease of native coronary artery without angina pectoris; J44.9 Chronic obstructive pulmonary disease, unspecified; F41.9 Anxiety disorder, unspecified; Z66 Do not resuscitate; Z51.5 Encounter for palliative care; R26.2 Difficulty in walking, not elsewhere classified; R74.8 Abnormal levels of other serum enzymes; E66.9 Obesity, unspecified; M84.48XS Pathological fracture, other site, sequela; Z85.118 Personal history of other malignant neoplasm of bronchus and lung; Z90.49 Acquired absence of other specified parts of digestive tract; Z90.710 Acquired absence of both cervix and uterus; Z87.891 Personal history of nicotine dependence; Z82.49 Family history of ischemic heart disease and other diseases of the circulatory system; Z79.899 Other long term (current) drug therapy; Z68.38 Body mass index [BMI] 38.0-38.9, adult